=== PATIENT | female | born 1965 | race Caucasian/White ===

== ENCOUNTER → 2016-09-04 | Outpatient (CLI) | payer BC ==
[~2016-09-04] VITALS: Ht 170.2 cm; Wt 72.5 kg
[~2016-09-04] MED LIST: AAA MISCELL; AMBIEN 10 MG TA10 MG PO; AMBIEN 5 MG TABL5 M1 PO; AMBIEN PO; AMITRIPTYLINE H10 M1 PO; BACLOFEN 10 MG10 MG PO; CARISOPRODOL 3350 MG PO; CARISOPRODOL250 MG PO; COVARYX TABLET1 EACH PO; DOXEPIN 10 MG C10 MG PO; ESTRACE2 MG PO; FISH OIL 1,0001 EAC5 PO; GABAPENTIN100 MG PO; HYDROCODON-ACE1 EAC1 PO; HYDROCODON-ACE1 EACH PO; HYDROCODONE-AP1 EA11 PO; HYDROCODONE-AP1 EAC6 PO; L-LYSINE500 M1 PO; MEDROLDOSEPACK PO; NEURONTIN300 MG PO; OXYCONTIN CR 2020 MG PO; OXYCONTIN20 MG PO; OXYCONTIN40 MG PO; PROZAC 20 MG20 M1 PO; PROZAC10 MG PO; SOMA250 MG PO; VITAMINC500
--- NOTE | ~2016-09-04 | HPC ---
[facility] [address] [place] [address] PAIN MANAGEMENT CONSULTATION Name: LEONEL JENKINS Room #: REG [facility] [id number] Admission: 09/04/16 Attend Phys: Amber Taylor MD Discharge: Date of : 65 Report #: [id number] THIS REPORT FOR: //name// CC: CULLEN BOB DATE OF SERVICE: 09/04/2016 FOLLOWUP COMPLAINT: Here for medication renewal. FOLLOWUP HISTORY: The patient is a 51-year-old female who has been followed in the pain clinic because of lumbar radiculopathy. She undergoes epidural steroid injections episodically. She notes that they have been beneficial. She claims greater than 50% improvement with the injections. At this juncture, she would like to have her medications renewed. She continues to have some pain in the low back area as well as in her shoulders. Leg pain is greater on the right than left. She rates her pain as 7/10 at this juncture. She would like to have her medications renewed. PHYSICAL EXAMINATION: The patient is alert. She does work third shift. Blood pressure is 130/98, pulse 81, respiratory rate 14, room air saturations 100%. The patient appears to be taking her medications as prescribed. She is alert and somewhat concerned because [employer] is going to a downsizing. IMPRESSION: History of lumbar radicular pain. The patient finds epidural steroid injections helpful by greater than 50% after each injection. Some concerns regarding her job given that [employer] is going to cut 10% of its workforce here in the near future. RECOMMENDATIONS: A script for the patient's medications have been written. OxyContin, Ambien, hydrocodone, and Neurontin have been rewritten. The patient is aware of the possible complications of opioid medications which include tolerance as well as addiction. She feels that her medications are helpful and enable her to continue to stay gainfully employed, it is not altering her sensorium or ability to mentate. We would like to thank you for letting us participate in her care. We hope she continues to improve. <ELECTRONICALLY SIGNED> By: Amber Taylor MD 09/10/16 0824 [id number] [id number] Amber Taylor MD /nt
[2016-09-04 09:36] VITALS: BP 130/98
== END ==
LOC: PAIN 06:56
DX: M54.16 Radiculopathy, lumbar region (principal); M25.512 Pain in left shoulder; M25.511 Pain in right shoulder; I10 Essential (primary) hypertension; Z76.0 Encounter for issue of repeat prescription

== ENCOUNTER → 2016-12-27 | Outpatient (CLI) | payer BC ==
[~2016-12-27] VITALS: Ht 170.2 cm; Wt 73.8 kg
--- NOTE | ~2016-12-27 | HPC ---
[facility] [address] [address] PAIN MANAGEMENT CONSULTATION Name: LEONEL JENKINS Room #: REG [facility].#: [id number] Admission: 12/27/16 Attend Phys: Amber Taylor MD Discharge: Date of : 65 Report #: [id number] THIS REPORT FOR: //name// CC: Clement BOB DATE OF SERVICE: 12/27/2016 FOLLOWUP COMPLAINT: "Back pain and leg pain is kind of bad." FOLLOWUP HISTORY: The patient is a 51-year-old female who has been followed in the pain clinic because of lumbar radicular pain. She has undergone epidural steroid injections in the past. She finds that her current medical regimen of Neurontin, Ambien, and hydrocodone have been helpful. She is more tired these days. Her job requires that they work 10-12 hour days. She finds that this is quite taxing and exacerbates her pain. Overall, she is doing reasonably well and would like to continue with her medications. She has had no complications from their use. She is not having any problems with work performance with her current medical regimen. PHYSICAL EXAMINATION: Blood pressure is 152/102, respiratory rate is 20, room air O2 saturation is 99%, pulse 84. Height 5 feet 7 inches, weight 162 pounds, BMI is 25. The patient continues to work toward weight loss and feels that she has been effective. IMPRESSION: History of lumbar radicular pain. The patient feels that things are going reasonably well and will continue on a conservative course. She would like to have her medications renewed. RECOMMENDATIONS: We discussed treatment options with the patient. Problems with narcotic medications which could include tolerance, and addiction have been discussed. The patient feels that her medications are working well and enable her to continue with her current job and stay gainfully employed. We will continue her medications and a script for the medications have been rewritten. We would like to thank you for letting us participate in her care. We hope she continues to improve. By: [id number] Amber Taylor MD /
[2016-12-27 11:05] VITALS: BP 152/102
== END ==
LOC: PAIN 06:48
DX: M54.5 Low back pain (principal)

== ENCOUNTER → 2017-04-04 | Outpatient (CLI) | payer BC ==
[~2017-04-04] VITALS: Ht 170.2 cm; Wt 73.6 kg
[~2017-04-04] MED LIST changes: +OXYCONTIN30 MG PO
--- NOTE | ~2017-04-04 | HPC ---
[facility] [place] [address] [place] [address] PAIN MANAGEMENT CONSULTATION Name: LEONEL JENKINS Room #: REG [facility].#: [id number] Admission: 04/04/17 Attend Phys: Amber Taylor MD Discharge: Date of : 65 Report #: [id number] THIS REPORT FOR: //name// CC: Clement BOB DATE OF SERVICE: 04/04/2017 FOLLOWUP COMPLAINT: Here for renewal of medication and my back still can be painful with pain down in the mid back and legs. FOLLOWUP HISTORY: The patient is a 52-year-old female who has been followed in the pain clinic. She suffers from lumbar radicular pain and has undergone epidural steroid injections in the past. These have been helpful. At this juncture, she continues to have pain, which she rates as a 6-7. She is experiencing some low back pain with pain down into her legs bilaterally as well as involving the mid back. Notes that the pain is worse with walking, standing and with certain activities. She is still able to work at [employer]. She feels that her current medical regimen of OxyContin 40 mg b.i.d. and hydrocodone are helpful. We have discussed the new requirements for opioid medications as delegated by the CDC. We will move in that direction. We will start to decrease the patient's medications to come into compliance. We discussed the possibility of dependence, tolerance and addiction with the patient again. She would like to proceed with her medications and have them renewed. We reevaluate her medications and discussed them with her. PHYSICAL EXAMINATION: Blood pressure 117/77, pulse 76, respiratory rate 14, room air saturation 100, height 5 feet 7 inches, weight 162 pounds, BMI is 25. The patient has not fallen since we saw her last. She does have some elements and feels that she has some clinical depression issues. IMPRESSION: 1. History of lumbar radicular pain treated with epidural steroid injections in the past and an optional is open for the future. 2. Pain and discomfort, low back, treated with complex medication management using opioid therapy. RECOMMENDATIONS: We discussed treatment options. The patient's pain medications have been dispensed. We will decrease from OxyContin 40 mg b.i.d. to his OxyContin 30 mg p.o. b.i.d. in an effort to get to his new CDC levels. I talked with the patient about 20 minutes regarding her situation [place] [address] PAIN MANAGEMENT CONSULTATION Name: LEONEL JENKINS Room #: REG [facility]#: [id number] Admission: 04/04/17 Attend Phys: Amber Taylor MD Discharge: Date of : 65 Report #: [id number] the medical use of opioid medications. We would like to thank you for letting us participate in her care. We hope she continues to improve. <ELECTRONICALLY SIGNED> By: Amber Taylor MD 04/10/17 0945 [id number] Amber Taylor MD /[facility]
[2017-04-04 08:28] VITALS: BP 113/77
== END ==
LOC: PAIN 06:56
DX: M54.5 Low back pain (principal); Z79.899 Other long term (current) drug therapy

== ENCOUNTER → 2017-07-16 | Outpatient (CLI) | payer BC ==
[~2017-07-16] VITALS: Ht 170.2 cm; Wt 75.3 kg
[~2017-07-16] MED LIST changes: +OXYCONTIN20 M1 PO
--- NOTE | ~2017-07-16 | HPC ---
[facility] [address] [place] [address] PAIN MANAGEMENT CONSULTATION Name: LEONEL JENKINS Room #: REG [facility].#: [id number] Admission: 07/16/17 Attend Phys: Amber Taylor MD Discharge: Date of : 65 Report #: [id number] THIS REPORT FOR: //name// CC: Clement Evans MD DATE OF SERVICE: 07/16/2017 FOLLOWUP COMPLAINT: "Things have been going pretty well, but my 's family member ." FOLLOWUP HISTORY: The patient is a 52-year-old female who has been followed in the Pain Clinic because of chronic pain. She has suffered from lumbar radiculopathy. She has undergone epidural steroid injection and does episodically. She continues to work at [email or web address]. She finds that her medication enable her to stay gainfully employed. She denies any problems with her mentation. She is not having any problems with her bowel or bladder. She notes that sometimes her pain is more problematic with the activities that she has to engage in at work such as walking, standing, and moving about in the cars. She feels that her medications are beneficial. We have discussed the requirements for the new CDC guidelines. She is aware of the conversation in the media. She is a nurse. She does not feel like she is having any tolerance or dependent issues. Overall, things are working reasonably well and she would like to continue with her medications. She is somewhat depressed and that her 's family member . Her job did not feel that this person was close enough to her to yaz her leave from work. Overall, she is dealing with this situation as best she can. ALLERGIES: No known drug allergies. CURRENT MEDICATIONS REVIEW: Include oxycodone 30 mg p.o. b.i.d., hydrocodone 7.5 one p.o. q.i.d., gabapentin 300 mg b.i.d., Soma 350 mg b.i.d., Ambien 5 mg at bedtime, Prozac 20 mg daily. PAIN CLINIC ASSESSMENT: 1. The patient has a generalized history of osteoarthritis. She is not being treated for rheumatoid arthritis. 2. Height 5 feet 7 inches, weight 166 pounds, BMI is 26. 3. Vital signs: Blood pressure 118/87, respiratory rate 16, room air saturation 97%. 4. Pain intensity: 6/10. 5. Fall risk: The patient has not fallen in the last 3 months. 6. The patient [place] [address] PAIN MANAGEMENT CONSULTATION Name: LEONEL JENKINS [facility] [id number] Admission: 07/16/17 Attend Phys: Amber Taylor MD Discharge: Date of : 65 Report #: [id number] 7. History of hypertension: The patient is being treated for hypertension. 8. Opioid therapy greater than 6 weeks: The patient has signed an opioid contract with the pain Clinic on 07/16/2017. 9. Risk assessment tool is 04/29, which is low. 10. Functional assessment tool. 11. Recreational drug use: The patient denies recreational drug use. 12. Tobacco: The patient denies use of tobacco. 13. Alcohol: The patient denies use of alcoholic beverages. PHYSICAL EXAMINATION: GENERAL: The patient is a well-developed, white female. She appears her stated age. AFFECT: The patient's affect is appropriate. ORIENTATION: The patient is alert and oriented x 3. HEENT: Normocephalic, atraumatic. Extraocular eye muscles intact. Conjunctivae clear. Mucous membranes moist. Hearing is within normal limits. NECK: Without adenopathy or JVD. HEART: Regular rate. ABDOMEN: Nontender. BACK/MUSCULOSKELETAL: Without significant lordosis, scoliosis or kyphosis. Upper extremity muscle strength is judged to be 5/5 with normal sensation. Lower extremity muscle strength is judged to be 5/5 with normal strength. She does complain of some pain and discomfort, which radiates down into her low back and legs when the lumbar radicular pain is problematic, not as problematic today. Muscle bulk is within normal limits. IMPRESSION: 1. History of lumbar radicular pain in the L5-S1 distribution, improved with epidural steroid injection and stabilized with current medical regimen. 2. Hypertension. 3. Saddened secondary to recent loss of a close relative. RECOMMENDATIONS: We will continue with her current medical regimen. A script for her medications of hydrocodone 7.5/325 one p.o. q.i.d. has been written. A script for Ambien 5 mg at bedtime, Soma 350 mg 1 p.o. b.i.d., gabapentin 300 mg b.i.d., and OxyContin 60 mg t.i.d. has been written. The patient has signed a contract for continued opioid use. She states that she only get her medications from one source. She will call us if she has any problems with her medications. We would like to thank you for letting us participate in her care. We hope she continues to improve. <ELECTRONICALLY SIGNED> By: Amber Taylor MD 07/30/17 0851 0824 9 MD rony Yu
[2017-07-16 08:04] VITALS: BP 118/82
== END ==
LOC: PAIN 07-09 06:50
DX: M54.16 Radiculopathy, lumbar region (principal); I10 Essential (primary) hypertension

== ENCOUNTER → 2017-10-15 | Outpatient (CLI) | payer BC ==
[~2017-10-15] VITALS: Ht 170.2 cm; Wt 76.7 kg
--- NOTE | ~2017-10-15 | HPC ---
[facility] [place] [address] [place] [address] PAIN MANAGEMENT CONSULTATION Name: LEONEL JENKINS Room #: REG [facility].#: [id number] Admission: 10/15/17 Attend Phys: Amber Taylor MD Discharge: Date of : 65 Report #: [id number] THIS REPORT FOR: //name// CC: Amber Taylor Physician staff SUE BOB DATE OF SERVICE: 10/15/2017 FOLLOWUP COMPLAINT: Here for my medications renewed. Another of my 's family members . FOLLOWUP HISTORY: The patient is a 52-year-old female who has been followed in the pain clinic because of chronic pain. Suffers from lumbar radiculopathy. She has undergone epidural steroid injections in the past which have been helpful. Continues to work at [employer]. She has been having some difficulty in sleeping, particularly since the added trauma of an additional family member who has . She finds it somewhat difficult to get time off from work because of the policies at [employer] against missing work. She feels that her medications continue to be helpful. She is having some difficulty sleeping and would like to increase her Ambien from 5 mg to 10 mg. She has been on 10 mg in the past and had no problems with that dosing. She is aware of use of opioid medications and the possibility of dependence as well as chronic use causing tolerance. ALLERGIES: No known drug allergies. CURRENT MEDICATIONS: Oxycodone 30 mg 1 p.o. b.i.d., hydrocodone 7.5 mg 1 p.o. q.i.d., gabapentin 300 mg b.i.d., Soma 350 mg b.i.d., Ambien 5 mg at bedtime, Prozac 20 mg daily. PAIN CLINIC ASSESSMENT: 1. The patient has generalized osteoarthritis. She is not being treated for rheumatoid arthritis. 2. Height 5 feet 7 inches, weight 169 pounds, BMI is 26. 3. Vital signs 134/86, pulse 55, respiratory rate 14, room air saturation 98%. 4. Pain intensity 7-11/28. 5. Fall risk. The patient has not fallen in the last 3 months. 6. Blood thinner. The patient is not on a blood thinning medication. 7. History of hypertension. The patient is being treated for hypertension. 8. Opioid therapy greater than 6 weeks. The patient is on an opioid contract and gets her medication from one source. 9. Risk assessment tool, low for with use of opioids. 10. Functional assessment tool. 11. Recreational drugs. The patient denies use of recreational drugs. 12. Tobacco: The patient has never smoked cigarettes. [address] [address] PAIN MANAGEMENT CONSULTATION Name: LEONEL JENKINS [facility] [id number] Admission: 10/15/17 Attend Phys: Amber Taylor MD Discharge: Date of : 65 Report #: [id number] 13. Alcohol: The patient denies use of alcoholic beverages. PHYSICAL EXAMINATION: GENERAL: The patient is a well-developed white female, appears her stated age. She has just gotten off from work and is somewhat tired today. Affect: The patient's affect is appropriate. Orientation: The patient is alert and oriented x3. HEENT: Normocephalic, atraumatic. Extraocular eye muscles intact. Conjunctiva clear. Mucous membrane is moist. Hearing within normal limits. NECK: Without adenopathy or JVD. HEART: Regular S1, S2. ABDOMEN: Nontender. MUSCULOSKELETAL: Without lordosis, scoliosis, kyphosis. Muscle strength in the upper extremity judged to be 5/5 for the major muscle groups. Pain and/or strength in the lower extremity judged to be 5/5. The patient has some pain and discomfort, which radiates down into her low back and into her legs. Muscle bulk is within normal limits and symmetrical bilaterally. IMPRESSION: 1. History of lumbar radicular pain in the L5-S1 dermatomal distribution improved in the past with epidural steroid injections. 2. Depression secondary to another of her 's relatives dying - has another brother who is living with liver cancer. RECOMMENDATIONS: We discussed treatment options with the patient. Risks and benefits of opioid medications were again discussed. The patient is aware of the possible complications of opioid use, which could include addiction as well as tolerance. The patient feels that she is having some difficulty sleeping, given the climate that she is in, she is under stress at work. They do not want to yaz her significant time off from work to undergo family medical leave. She would like to try Ambien at 10 mg per night on those occasions when sleep is problematic. We will increase her Ambien to 45 pills. She will be able to take 1 every other night should she need. She will also be given a script for renewal of her medications of hydrocodone, Soma, gabapentin and OxyContin. We would like to thank you for letting us participate in her care. We hope she continues to improve. By: [id number] Amber Taylor MD /naty
[2017-10-15 09:50] VITALS: BP 134/86
== END ==
LOC: PAIN 06:58 → RAD 06:58 → PAIN 10:41
DX: Z12.31 Encounter for screening mammogram for malignant neoplasm of breast (principal); M54.16 Radiculopathy, lumbar region; F32.9 Major depressive disorder, single episode, unspecified; Z79.891 Long term (current) use of opiate analgesic

== ENCOUNTER → 2018-04-10 | Outpatient (CLI) | payer BC ==
[~2018-04-10] VITALS: Ht 170.2 cm; Wt 74.7 kg
[~2018-04-10] MED LIST changes: +VALIUM5 MG PO
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
[2018-04-10 08:53] VITALS: BP 144/106
== END ==
LOC: PAIN 08:40
DX: M54.16 Radiculopathy, lumbar region (principal); F32.9 Major depressive disorder, single episode, unspecified; Z79.899 Other long term (current) drug therapy

== ENCOUNTER → 2018-06-05 | Outpatient (CLI) | payer BC ==
[~2018-06-05] VITALS: Ht 170.2 cm; Wt 74.4 kg
--- NOTE | ~2018-06-05 | HPC ---
[facility] [address] [place] [address] PAIN MANAGEMENT CONSULTATION Name: LEONEL JENKINS Room #: REG [facility].#: [id number] Admission: 06/05/18 Attend Phys: Amber Taylor MD Discharge: Date of : 65 Report #: [id number] THIS REPORT FOR: //name// CC: Amber Taylor Physician staff SUE BOB DATE OF SERVICE: 06/05/2018 FOLLOWUP COMPLAINT: Here for medication renewal. HISTORY: The patient is a 53-year-old female who has been followed and seen in the pain clinic for quite a number of years. Continues to have pain and discomfort at the lumbar area. She has undergone epidural steroid injections in the past and gleaned benefits from these. She continues to work at the [employer]. States that she has a job which is somewhat strenuous. Gets in and out of cars. She has had some increased anxiety. States that there are ____ who are stealing the car from the company. She almost was run over by one of them. They appear to be teenagers under the age of 16. They steal cars and she is concerned for her safety. Because of that, she has had increased anxiety. She spoke with her psychiatrist with the desire to try an antianxiety agent. She has raised a question of use of an additional medication for anxiety with the pain clinic. Overall, she feels that she is less anxious now. They have made some changes in her activities at work. It seems like things are better and she feels less anxious. She does not feel that she needs to have another antianxiety medication at this point. ALLERGIES: No known drug allergies. CURRENT MEDICATIONS: Diazepam 5 mg 1 p.o. b.i.d. The patient has Ambien 5 mg 1-1/2 tablets daily at bedtime, oxycodone ER 20 mg b.i.d., hydrocodone 7.5 mg 1 p.o. q.i.d., gabapentin 300 mg, Soma 350 mg, Prozac 20 mg. PAIN CLINIC ASSESSMENT/PQRS: 1. The patient has some signs of osteoarthritic changes in her hands. She feels that she may have rheumatoid arthritis features as well. She is a nurse. Height 5 feet 6 inches, weight 164 pounds, BMI is 25.7. 2. Vital signs: Blood pressure 110/88, pulse 64, respiratory rate 14, room air saturation 97%. 3. Pain intensity 6/7. 4. Fall history: The patient has not fallen in the last 3 months. 5. Blood thinner. The patient is not on a blood thinning medication. 6. Hypertension. The patient is being treated for hypertension. 7. Opioids greater than 6 weeks, the patient receives her medication from one source, the pain clinic. 8. Risk assessment tool, low for opioid use. [address] [address] PAIN MANAGEMENT CONSULTATION Name: LEONEL JENKINS Room #: REG [facility].#: [id number] Admission: 06/05/18 Attend Phys: Amber Taylor MD Discharge: Date of : 65 Report #: [id number] 9. Functional assessment tool . 10. Recreational drug use. The patient denies use of recreational drugs. 11. Tobacco: The patient never smoked. 12. Alcohol: The patient denies use of alcoholic beverages. PHYSICAL EXAMINATION: GENERAL: The patient is a well-developed, well-nourished white female. Appears her stated age. She is alert and oriented x 3. Her affect is appropriate. Speech is fluent. HEENT: Normocephalic, atraumatic. Extraocular eye muscles intact. Sclerae nonicteric. Mucous membranes moist. Hearing is within normal limits. NECK: Without adenopathy or JVD. HEART: Rate regular, S1, S2. ABDOMEN: Nontender. Bowel sounds present. MUSCULOSKELETAL: Without kyphosis, lordosis, or scoliosis. Muscle strength in the upper extremities, judged to be 5/5 for the major muscle groups. The patient has some pain and discomfort in the lower portion of her back. Rates her pain as 5-/5 for the lower extremity. Has low back pain with pain that has been radiating down into her legs, this is in the L5-S1 dermatomal distribution. She will consider an epidural steroid injection in the future. IMPRESSION: 1. History of lumbar radiculopathy with pain in the L5-S1 dermatomal distribution. 2. Depression. 3. Anxiety. RECOMMENDATIONS: We discussed treatment options with the patient. She does have a number of central acting medications on board. I think that if she should get another medication, which is going to be centrally acting by her psychiatrist. We will have to decrease one of the medications that she is taking. At this juncture, she feels that overall that her anxiety level has improved. Does not feel like she needs to take another medication and is willing to consider decreasing her OxyContin down by 10 mg at the next visit. She will call us if she has any concerns. We would like to thank you for letting us participate in her care. A script for her medications of oxycodone 20 mg ER 1 p.o. b.i.d., hydrocodone 7.5 mg 1 p.o. q.i.d., Soma 350 mg 1 p.o. b.i.d., gabapentin 300 mg b.i.d., Ambien 5 mg, total of 45 tablets have been written. We would like to thank you for letting us participate in her care. We hope she continues to improve. By: [id number] Amber Taylor MD /nt
[2018-06-05 08:41] VITALS: BP 110/88
--- NOTE | 2018-06-05 08:49 | NUR ---
Pain Clinic Assessment: 1. History of Osteoarthritis: hands knee History of Rheumatoid Arthritis: none 2. Height: 5 ft. 7 in. 170.2 cm. Weight: 164.0 lb. oz. 74.390 kg. Patient's BMI: 25.7 3. Vital Signs: BP: 110/88 Pulse: 64 Resp: 14 Temp: 02 Sat: 97 ECG Mon: 4. Pain Intensity: 6-7 5. Fall Risk: Dizziness: N Needs help standing or walking: N Fallen in the last 3 months: N Fall risk comments: 6. Patient on Blood Thinner: None 7. History of Hypertension: Y 8. Opioid Therapy greater than 6 weeks: Y Opiate Contract Signed: 07/16/17 9. Risk Assessment Tool Provided: 1 LOW RISK 10. Functional Assessment Tool: 11. Recreational Drug Use: Never Drug Type: Tobacco Use: Never Smoker Tobacco Type: Amount or Packs/day: How Many Years: Alcohol Use: No Frequency: Quant:
== END ==
LOC: PAIN 06:56
DX: M54.16 Radiculopathy, lumbar region (principal); F32.9 Major depressive disorder, single episode, unspecified; I10 Essential (primary) hypertension; F41.9 Anxiety disorder, unspecified; Z79.899 Other long term (current) drug therapy

== ENCOUNTER → 2018-07-20 | Outpatient (CLI) | payer BC ==
[~2018-07-20] VITALS: Ht 170.2 cm; Wt 77.4 kg
[~2018-07-20] MED LIST changes: +NEURONTIN 300300 M1 PO
[2018-07-20 09:27] VITALS: BP 154/99
--- NOTE | 2018-07-20 10:34 | NUR ---
Pain Clinic Assessment: 1. History of Osteoarthritis: hands knee History of Rheumatoid Arthritis: none 2. Height: 5 ft. 7 in. 170.2 cm. Weight: 170.6 lb. oz. 77.384 kg. Patient's BMI: 26.7 3. Vital Signs: BP: 154/99 Pulse: 64 Resp: 14 Temp: 02 Sat: 99 ECG Mon: 4. Pain Intensity: 6 5. Fall Risk: Dizziness: N Needs help standing or walking: N Fallen in the last 3 months: N Fall risk comments: 6. Patient on Blood Thinner: None 7. History of Hypertension: Y 8. Opioid Therapy greater than 6 weeks: Y Opiate Contract Signed: 07/16/17 9. Risk Assessment Tool Provided: 1 LOW RISK 10. Functional Assessment Tool: 11. Recreational Drug Use: Never Drug Type: Tobacco Use: Never Smoker Tobacco Type: Amount or Packs/day: How Many Years: Alcohol Use: No Frequency: Quant:
--- NOTE | 2018-07-22 07:20 | HPC ---
[facility] [address] [place] [address] PAIN MANAGEMENT CONSULTATION Name: LEONEL JENKINS Room #: REG [facility].#: [id number] Admission: 07/20/18 ������������������ Attend Phys: Nicolasa Pillai Discharge: ������������������ Date of : 65 Report #: [id number] THIS REPORT FOR: //name// CC: Nicolasa Pillai Physician staff SUE BOB DATE OF SERVICE: 07/20/2018 CHIEF COMPLAINT: Chronic low back pain and neck pain. HISTORY OF PRESENT ILLNESS: This is a 53-year-old female who returns to the pain clinic today for refill of her medications for her ongoing chronic pain. She tells me that her lower back continues to ache, feels like a deep ache with tenderness and sharp shooting pain at times, but today she also complains of neck pain that radiates into both her arms and hands causing her having tingling and numbness in her fingers. She rates her pain score at 6/10, worse with activity, better with her medications and sitting. The patient is also requesting to decrease her OxyContin and wondering while she decreases that medicine if she is able to increase her hydrocodone slightly. She was wondering if that would help decrease her number per the CDC recommendations. ALLERGIES: No known drug allergies. MEDICATIONS: Gabapentin 300 mg b.i.d., Soma 350 mg b.i.d. as needed, Ambien 5 mg 1-2 tablets at bedtime, OxyContin 20 mg b.i.d., hydrocodone 7.5/325 four times a day and Prozac 10 mg daily. PQRS: 1. She has signs of arthritic changes in her hands. She denies any rheumatoid arthritis. 2. Height is 5 feet 7 inches, weight is 170, BMI is 26.7. 3. Vital signs: 154/99, pulse is 64, respirations 14, oxygen sat is 99. 4. Pain score 6/10. 5. Does not have any dizziness, has not fallen in the last 3 months and does not need help walking or standing. 6. The patient is not on any blood thinners. She does have a history of hypertension. 7. Opioid therapy is greater than 6 weeks; therefore, an opioid signed contract is on the chart. 8. Risk assessment tool is low. Functional assessment is . 9. Recreational drug use, she denies. She is not a smoker and does not drink alcohol. PHYSICAL EXAMINATION: GENERAL: This is a well-developed, well-nourished white female who appears her [address] [address] PAIN MANAGEMENT CONSULTATION Name: LEONEL JENKINS Room #: REG [facility]#: [id number] Admission: 07/20/18 ������������������ Attend Phys: Nicolasa Pillai Discharge: ������������������ Date of : 65 Report #: [id number] stated age. She is alert and orientated x 3. Her affect is appropriate. HEENT: Normocephalic, atraumatic. Extraocular eye muscles are intact. Mucous membranes are moist. NECK: Without adenopathy or JVD. Does complain of tenderness across her upper neck and shoulder region. Does have pain that radiates down into the tips of her fingers in the dermatomal distribution of C6 and C7. Muscle strength judged to be 4/5 in her upper extremities. MUSCULOSKELETAL: Without kyphosis, lordosis, or scoliosis. Muscle strength in her lower extremity judged to be 5/5 in major muscle groups and in her upper extremity judged to be 4/5 in her major muscle groups. She does have some pain across her lower back that does radiate down her leg in distribution of the dermatome chart on L5-S1. IMPRESSION: 1. History of lumbar radiculopathy with pain at the L5-S1 dermatomal distribution. 2. Neck pain with cervical radiculopathy. 3. Depression. 4. Anxiety. 5. Chronic opioid management under terms of written opioid agreement. We reviewed the fact that opiate medications are being used to provide analgesia adequate to support activities of daily living, not attempting to achieve a specific pain score on the 0-10 Visual Analog Scale. The current opiate medications are providing sufficient analgesia to allow the patient to participate in activities of daily living. The patient is not exhibiting any aberrant behavior suggestive of drug diversion. The patient is not having any adverse reactions to medications. The patient is not suffering from daytime somnolence or mental acuity changes. The patient is managing opiate-induced constipation with appropriate [id number] agents and dietary considerations. The patient was counseled on concern for caution with operating a motor vehicle while using opiate medications. A physical exam was performed and the patient's functional status was evaluated. All patients with back pain were advised against the bed rest greater than 4 days and were advised to return to normal activities. Pain score assessment was noted and the treatment plan was reviewed with the patient. All current medications, both prescribed and OTC were reviewed and reconciled on the electronic medical record. Tobacco screening was accomplished and smoking cessation was advised when indicated. BMI was noted and diet/exercise modification was recommended for all patients following outside normal parameters. I reviewed with the patient today their responsibilities to safeguard prescription medications, reviewed their responsibility to utilize medications only as prescribed by the physician. They are to seek and receive pain [address] [address] PAIN MANAGEMENT CONSULTATION Name: LEONEL JENKINS Room #: REG [facility]#: [id number] Admission: 07/20/18 ������������������ Attend Phys: Nicolasa Pillai Discharge: ������������������ Date of : 65 Report #: [id number] medications only from 1 physician group ( [facility]). They are to use 1 pharmacy and keep the clinic informed if they change pharmacies. Their responsibilities include making followup visits in a timely fashion and to avoid abrupt discontinuation of medication usage. Their responsibilities further include bringing their medications (bottles from the pharmacy with residual pills) to the visit for possible confirmation of pill counts and the patient understands it is their responsibility to submit to random drug screens to ensure both that the medications prescribed are present, and that no other controlled substances are present. All prescriptions provided today were generated electronically. PLAN: 1. We discussed treatment options with the patient today. First of, the patient does complain of increasing neck pain that has been radiating down into her fingers. The patient has had epidurals in the past in her lumbar spine and would consider an epidural in her neck. We have no new studies. I suggested make an appointment with Dr. Elvis Taylor for a cervical epidural. The patient is agreeable to this. I explained to her that if the epidural is not helpful in relieving some of her pain that we could consider an MRI. Appointment made for this injection. 2. The patient has been slowly decreasing her opioid medications. She is well aware of the CDC guidelines and was requesting a decrease in her OxyContin today and then a slight increase in her hydrocodone. She was wondering what her number might be. We calculated that she was currently on 90 morphine mEq if we decreased her to 1 hydrocodone a day, but increased her hydrocodone to 4 tablets of 10/325 that would give her a CDC guideline number of 70 morphine mEq today. The patient would like to try this. Scripts given for 1 month of these medications. The patient will return at that time to reevaluate to see how she is doing and plans to continue at that dose for several months and then decrease her off her OxyContin. 3. Script is also given for gabapentin 300 mg 1 tablet twice a day, #60 with one additional refill and Ambien 5 mg 1-2 tablets at bedtime, #45 with one additional refill and Soma 350 mg b.i.d. #60 with one additional refill. The patient finds all these medications are very helpful in controlling her pain. 4. The patient seen in collaboration with Dr. Elvis Taylor. ��������������������������������������������� <ELECTRONICALLY SIGNED> ���������������������������������������� By: Nicolasa Pillai ��������������������������������������������� 07/22/18 0720 1124 [id number] Nicolasa Pillai /naty
== END ==
LOC: PAIN 07:00
DX: M54.16 Radiculopathy, lumbar region (principal); M54.12 Radiculopathy, cervical region; F32.9 Major depressive disorder, single episode, unspecified; F41.9 Anxiety disorder, unspecified; Z79.899 Other long term (current) drug therapy

== ENCOUNTER → 2018-07-24 | Outpatient (CLI) | payer BC ==
[~2018-07-24] VITALS: Ht 170.2 cm; Wt 78.7 kg
--- NOTE | ~2018-07-24 | HPC ---
[facility] [place] [address] [place] [address] PAIN MANAGEMENT CONSULTATION Name: LEONEL JENKINS Room #: REG [facility]ON [facility]#: [id number] Admission: 07/24/18 ������������������ Attend Phys: Amber Taylor MD Discharge: ������������������ Date of : 65 Report #: [id number] THIS REPORT FOR: //name// CC: Amber Taylor Physician staff SUE BOB DATE OF SERVICE: 07/24/2018 CHIEF COMPLAINT: Pain in the neck with pain radiating down into the left arm, would like to have a cervical injection. HISTORY: The patient is a 53-year-old female. 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 She has had pain and discomfort in the lower back with bilateral pain in her hips, legs. She now is having pain, it is in her neck, which radiates down into both arms and her hands. She feels that a cervical epidural steroid injection could be helpful. She has had problems with chronic pain since 1986. Has some complaint of pain in the low back area, neck, arm, pain is most problematic today. She has been experiencing some numbness, tingling and weakness in the upper extremities. Rates her pain as a 6/10. Has increased pain and exacerbated when she turns her head to the left. Reaching motions are problematic as well. Sitting and resting are less problematic. She has returned today to the pain clinic with a desire to undergo a cervical epidural steroid injection to help control her pain. ALLERGIES: No known drug allergies. CURRENT MEDICATIONS: Diazepam 5 mg 1 p.o. b.i.d., Ambien 5 mg 1 to 1-1/2 tablets daily at bedtime, oxycodone ER 20 mg b.i.d., hydrocodone 7.5 mg 1 p.o. q.i.d., gabapentin 300 mg, Soma 350 mg, Prozac 20 mg. PAIN CLINIC ASSESSMENT AND PQRS: 1. The patient has some arthritic changes in her hands. The patient has some complaints of pain in her low back area as well. She is not being treated for rheumatoid arthritis. 2. Height 5 feet 7 inches, weight 173 pounds, BMI is 27.2. 3. Vital signs: Blood pressure 146/94. Pulse 58, respiratory rate 16, room air saturation 98%. 4. Pain intensity 09/28. 5. Fall risk. The patient has not fallen. 6. Blood thinner. The patient is not on a blood thinning medication. 7. Hypertension. The patient has been treated for hypertension. 8. Opioids greater than 6 weeks. The patient has received her medication through the pain clinic. 9. Risk assessment tool, low risk for opioid use. 10. Functional assessment tool . [address] [address] PAIN MANAGEMENT CONSULTATION Name: LEONEL JENKINS Room #: REG CLI [facility]#: [id number] Admission: 07/24/18 ������������������ Attend Phys: Amber Taylor MD Discharge: ������������������ Date of : 65 Report #: [id number] 11. Recreational drug use. The patient denies use of recreational drugs. 12. Tobacco: The patient has never smoked. 13. Alcohol: The patient denies use of alcoholic beverages. PHYSICAL EXAMINATION: GENERAL: The patient is a well-developed, well-nourished white female. Appears her stated age. She is alert and oriented x 3. Affect is appropriate. Speech is fluent. HEENT: Normocephalic, atraumatic. Extraocular eye muscles intact. Sclerae nonicteric. Mucous membranes are moist. NECK: Without adenopathy or JVD. The patient has some increased pain and discomfort in the neck area. Notes and complains of pain within both arms with pain that is radiating down from her neck into her arms, left as well as the right. Notes some numbness and tingling sensation in the arms and fingers. HEART: Regular rate. S1, S2. ABDOMEN: Nontender. Bowel sounds present. MUSCULOSKELETAL: Without significant scoliosis, kyphosis or lordosis. Upper extremity muscle strength is judged to be 4+/5 for the major muscle groups in the upper extremity. The patient has some pain and discomfort in the lower extremity. Rates pain as 5-/5 for the lower extremities. Has had pain in the past in the L5-S1 dermatomal distribution. IMPRESSION: 1. History of lumbar radiculopathy with pain in the L5-S1 dermatomal distribution. 2. Complaint now with cervical radicular pain in the cervical area with numbness and tingling down in the left as well as the right arm. 3. Depression. 4. Anxiety. RECOMMENDATIONS: We discussed treatment options with the patient. Risks and benefits of a cervical epidural steroid injection were discussed. They include but are not limited to infection, worsening of pain, no improvement in pain, nerve trauma, bleeding, infection. The patient elects to proceed. PROCEDURE NOTE: The patient was taken to the procedure area. She was assisted in getting on the examination table. A pillow was placed under her shoulders to bolster and improved positioning. Her neck was sterilely prepped with a Betadine solution. It was allowed to dry. A 0.25% bupivacaine was infiltrated at the C7-T1 interspace. This was using a left lateral approach. Her fluoroscopy was then used to direct a 17-gauge Tuohy in the left lateral approach at the C7-T1 interspace. Aspiration was negative. A total of 120 mg of triamcinolone was injected. The patient tolerated the procedure well. There were approximately 20 seconds' fluoroscopy time. Pain score was 5/6 when the patient was discharged. She will follow up in the future as needed. We would [facility] [place] [place] [address] PAIN MANAGEMENT CONSULTATION Name: LEONEL JENKINS Room #: [id number] Admission: 07/24/18 ������������������ Attend Phys: Amber Taylor MD Discharge: ������������������ Date of : 65 Report #: [id number] like to thank you for letting us participate in her care. We hope she continues to improve. ��������������������������������������������� ���������������������������������������� By: ��������������������������������������������� [id number] [id number] Amber Taylor MD /SOTERO
[2018-07-24 08:37] VITALS: BP 146/94
--- NOTE | 2018-07-24 08:43 | NUR ---
Pain Clinic Assessment: 1. History of Osteoarthritis: hands knee History of Rheumatoid Arthritis: none 2. Height: 5 ft. 7 in. 170.2 cm. Weight: 173.4 lb. oz. 78.654 kg. Patient's BMI: 27.2 3. Vital Signs: BP: 146/94 Pulse: 58 Resp: 16 Temp: 02 Sat: 98 ECG Mon: 4. Pain Intensity: 6 5. Fall Risk: Dizziness: N Needs help standing or walking: N Fallen in the last 3 months: N Fall risk comments: 6. Patient on Blood Thinner: None 7. History of Hypertension: Y 8. Opioid Therapy greater than 6 weeks: Y Opiate Contract Signed: 07/16/17 9. Risk Assessment Tool Provided: 1 LOW RISK 10. Functional Assessment Tool: 11. Recreational Drug Use: Never Drug Type: Tobacco Use: Never Smoker Tobacco Type: Amount or Packs/day: How Many Years: Alcohol Use: No Frequency: Quant:
== END | disposition home or self-care (01) ==
LOC: PAIN 06:52
DX: M54.12 Radiculopathy, cervical region (principal); M54.16 Radiculopathy, lumbar region; G89.29 Other chronic pain; I10 Essential (primary) hypertension; F32.9 Major depressive disorder, single episode, unspecified; F41.9 Anxiety disorder, unspecified; Z79.891 Long term (current) use of opiate analgesic; Z79.899 Other long term (current) drug therapy; Z98.890 Other specified postprocedural states

== ENCOUNTER → 2018-09-18 | Outpatient (CLI) | payer BC ==
[~2018-09-18] VITALS: Ht 170.2 cm; Wt 75.4 kg
[~2018-09-18] MED LIST changes: +HYDROCODON-ACE1 EAC5 PO
[2018-09-18 11:13] VITALS: BP 148/87
--- NOTE | 2018-09-18 11:37 | NUR ---
Pain Clinic Assessment: 1. History of Osteoarthritis: hands knee History of Rheumatoid Arthritis: none 2. Height: 5 ft. 7 in. 170.2 cm. Weight: 166.2 lb. oz. 75.388 kg. Patient's BMI: 26.0 3. Vital Signs: BP: 148/87 Pulse: 70 Resp: 14 Temp: 02 Sat: 100 ECG Mon: 4. Pain Intensity: 7 5. Fall Risk: Dizziness: N Needs help standing or walking: N Fallen in the last 3 months: N Fall risk comments: 6. Patient on Blood Thinner: None 7. History of Hypertension: Y 8. Opioid Therapy greater than 6 weeks: Y Opiate Contract Signed: 07/16/17 9. Risk Assessment Tool Provided: 1 LOW RISK 10. Functional Assessment Tool: 11. Recreational Drug Use: Never Drug Type: Tobacco Use: Never Smoker Tobacco Type: Amount or Packs/day: How Many Years: Alcohol Use: No Frequency: Quant:
--- NOTE | 2018-09-21 08:34 | HPC ---
[facility] [address] [address] PAIN MANAGEMENT CONSULTATION Name: LEONEL JENKINS Room #: REG [facility].#: [id number] Admission: 09/18/18 ������������������ Attend Phys: Nicolasa Pillai Discharge: ������������������ Date of : 65 Report #: [id number] THIS REPORT FOR: //name// CC: Nicolasa Pillai Physician staff SUE BOB DATE OF SERVICE: 09/18/2018 CHIEF COMPLAINT: Neck pain radiating down into her left arm. HISTORY OF PRESENT ILLNESS: This is a very pleasant 53-year-old female who returns to the pain clinic today for refill of her medications. She tells me that in July when she saw Dr. Taylor she had a cervical epidural steroid injection. She is 90% better from that, still having some significant pain relief from that. She only has residual numbness and tingling in her bilateral hands. Most of her pain today is located in her lumbar back as well as her legs. The pain is worse in the right leg than the left. Today, she rates her pain score a 7/10, which is a sharp, shooting, achy, tenderness, pain that is worse with activity, better with resting and with the use of her medications. She tells me she is getting ready to go on vacation to [place]. She needs a vacation fill for her medications since she will be gone for greater than 2 weeks. She understands that she needs to safeguard her medications when she is traveling. ALLERGIES: No known drug allergies. CURRENT MEDICATIONS: Ambien 5 mg at bedtime, OxyContin 20 mg b.i.d., hydrocodone 7.5/325, gabapentin 300 mg b.i.d., Soma 350 b.i.d. and Prozac 20 mg daily. PQRS: 1. The patient has some arthritic changes in her hands and her lower back. She is not being treated for rheumatoid arthritis. 2. Height is 5 feet 7 inches, weight is 166 and BMI is 26. 3. VITAL SIGNS: Blood pressure 148/87, pulse is 70, respirations 14 and oxygen sat is 100. 4. Pain score 7/10. 5. Fall risk. Denies dizziness. She does not need help with walking or standing. She has not fallen in the last 3 months. 6. The patient is not on any blood thinners, does take medicine for hypertension. 7. Opioid therapy is greater than 6 weeks; therefore, an opioid signed contract is on the chart. Her risk assessment tool is low. Functional assessment is . [address] [address] PAIN MANAGEMENT CONSULTATION Name: LEONEL JENKINS Room #: REG [facility].#: [id number] Admission: 09/18/18 ������������������ Attend Phys: Nicolasa Pillai Discharge: ������������������ Date of : 65 Report #: [id number] 8. Recreational drug use, she denies. She is not a smoker and does not drink alcohol. We did check the prescription monitoring system. The patient is due in 2 weeks for her medications but since she is going on vacation fill, we will release her medications early. We will need to check a urine specimen randomly in one of her next visits. She does safeguard her medications when she is working and keeps them out of Children's reach at home. PHYSICAL EXAMINATION GENERAL: This is a pleasant 53-year-old female who appears her stated age. Placing her pain score today at 7/10. She is alert and orientated and her affect is appropriate. HEENT: Normocephalic and atraumatic. Extraocular eye muscles are intact. Mucous membranes are moist. NECK: Without adenopathy or JVD. She has some tenderness in her neck and numbness and tingling in her fingers. MUSCULOSKELETAL: Without significant scoliosis, kyphosis or lordosis. Upper extremity strength judged to be 4/5 in major muscle groups in her upper extremities. She has pain across her lumbar spine that radiates into her bilateral legs, greater in the right than the left. Her lower extremity strength judged to be 5/5 in her lower extremities. Her pain does follow the L5-S1 distribution in from her lumbar spine. IMPRESSION: 1. History of lumbar radiculopathy following the L5-S1 dermatomal distribution. 2. Cervical radicular pain with radiation into the right arm. 3. Depression. 4. Anxiety. 5. Complex medical management under terms a written opioid agreement. We reviewed the fact that opiate medications are being used to provide analgesia adequate to support activities of daily living, not attempting to achieve a specific pain score on the 0-10 Visual Analog Scale. The current opiate medications are providing sufficient analgesia to allow the patient to participate in activities of daily living. The patient is not exhibiting any aberrant behavior suggestive of drug diversion. The patient is not having any adverse reactions to medications. The patient is not suffering from daytime somnolence or mental acuity changes. The patient is managing opiate-induced constipation with appropriate [id number] agents and dietary considerations. The patient was counseled on concern for caution with operating a motor vehicle while using opiate medications. A physical exam was performed and the patient's functional status was evaluated. All patients with back pain were advised against the bed rest greater than 4 days and were advised to return to normal activities. Pain score assessment was [address] [address] PAIN MANAGEMENT CONSULTATION Name: LEONEL JENKINS Room #: REG [facility]#: [id number] Admission: 09/18/18 ������������������ Attend Phys: Nicolasa Pillai Discharge: ������������������ Date of : 65 Report #: [id number] noted and the treatment plan was reviewed with the patient. All current medications, both prescribed and OTC were reviewed and reconciled on the electronic medical record. Tobacco screening was accomplished and smoking cessation was advised when indicated. BMI was noted and diet/exercise modification was recommended for all patients following outside normal parameters. I reviewed with the patient today their responsibilities to safeguard prescription medications, reviewed their responsibility to utilize medications only as prescribed by the physician. They are to seek and receive pain medications only from 1 physician group ( [facility]). They are to use 1 pharmacy and keep the clinic informed if they change pharmacies. Their responsibilities include making followup visits in a timely fashion and to avoid abrupt discontinuation of medication usage. Their responsibilities further include bringing their medications (bottles from the pharmacy with residual pills) to the visit for possible confirmation of pill counts and the patient understands it is their responsibility to submit to random drug screens to ensure both that the medications prescribed are present, and that no other controlled substances are present. All prescriptions provided today were generated electronically. PLAN: 1. We discuss treatment options with the patient today. The patient continues to try to decrease her opioid medications. She would like to decrease her OxyContin. We had spent a great length figuring out morphine milliequivalents. Currently, the patient is at 90 with her OxyContin and hydrocodone. The patient would like to be able to decrease her OxyContin to once a day and increase her hydrocodone slightly. Based on our math, this would put her at 70 morphine milliequivalents. We would keep her at this current rate of medications for several months and then try to decrease her OxyContin to 10 mg a day and then remain at that for several months and then off her OxyContin altogether. The patient is agreeable with this plan of care. 2. Script was given today for OxyContin 20 mg, #30, for release today and 4-week as a vacation fill and hydrocodone 10 q.i.d., #120 to release today for vacation fill and again in 4 weeks. The patient understands that she should have medicines for actually in 2 months and 2 weeks, so her appointment will be made after that time. 3. Scripts also given for refills of Soma 350 mg tablets, #60 with one additional refill, Ambien 5 mg, #45 with one additional refill and Neurontin 300 mg #60 with one additional refill. 4. The patient reminded to keep her medications on her person when she is traveling and keep the medication safeguarded with [place] [address] PAIN MANAGEMENT CONSULTATION Name: LEONEL JENKINS Room #: REG [facility]#: [id number] Admission: 09/18/18 ������������������ Attend Phys: Nicolasa Pillai Discharge: ������������������ Date of : 65 Report #: [id number] as well. She verbalizes understanding. 5. Dr. Skip Taylor did see the patient and collaborated care today. ��������������������������������������������� <ELECTRONICALLY SIGNED> ���������������������������������������� By: Nicolasa Pilali ��������������������������������������������� 09/21/18 0834 [id number] [id number] Nicolasa Pillai /nt
== END ==
LOC: PAIN 06:51
DX: M54.12 Radiculopathy, cervical region (principal); M54.16 Radiculopathy, lumbar region; M54.2 Cervicalgia; I10 Essential (primary) hypertension; F32.9 Major depressive disorder, single episode, unspecified; F41.9 Anxiety disorder, unspecified; Z79.891 Long term (current) use of opiate analgesic; Z79.899 Other long term (current) drug therapy

== ENCOUNTER → 2018-12-11 | Outpatient (CLI) | payer BC ==
[~2018-12-11] VITALS: Ht 170.2 cm; Wt 78.3 kg
--- NOTE | ~2018-12-11 | HPC ---
[facility] [address] [place] [address] PAIN MANAGEMENT CONSULTATION Name: LEONEL JENKINS Room #: REG T[facility]ON [facility]#: [id number] Admission: 12/11/18 Attend Phys: Amber Taylor MD Discharge: Date of : 65 Report #: [id number] THIS REPORT FOR: //name// CC: Amber Taylor Physician staff SUE BOB DATE OF SERVICE: 12/11/2018 CHIEF COMPLAINT: Here for medication renewal. HISTORY: The patient is a 53-year-old female who has been followed in the Pain Clinic because of chronic pain. She has had some problems with cervical radicular pain as well as low back pain. She returns to the clinic for renewal of her medications. She recently fell at work. She states that she hurt her right knee as well as her right shoulder. This was about 4 weeks ago when this occurred. Pain is somewhat lingering at this point. She has had some increased stress regarding her who has had some cancers. Had a basal cell removed as well as some squamous cell carcinoma on his right arm. She has returned today for renewal of her medications. ALLERGIES: No known drug allergies. CURRENT MEDICATIONS: Ambien 5 mg at bedtime, OxyContin 20 mg b.i.d., hydrocodone 7.5 mg, gabapentin 300 mg b.i.d., Soma 350 mg, and Prozac 20 mg daily. PAIN CLINIC ASSESSMENT AND PQRS: 1. The patient has some arthritic changes in her hands and her low back. She is not being treated for rheumatoid arthritis. 2. Height 5 feet 7 inches, weight 172 pounds, BMI is 27. 3. Vital signs: Blood pressure 172/78, pulse is 59, respiratory rate 16, room air saturation is 100. 4. Pain intensity, 11/28. 5. Fall history: The patient did fall. Continues to have some pain in her right shoulder and right knee. 6. Blood thinner. The patient is not on a blood thinning medication. 7. Hypertension. The patient is not being treated for hypertension. 8. Opioids greater than 6 weeks. 9. Risk assessment tool, moderate for use of opioids. 10. Functional assessment tool, . 11. Recreational drug use. The patient denies. 12. Tobacco: The patient has never smoked. 13. Alcohol: The patient occasionally drinks alcoholic beverages. PHYSICAL EXAMINATION: [facility] [address] [place] [address] PAIN MANAGEMENT CONSULTATION Name: LEONEL JENKINS Room #: REG [facility]a [facility]#: [id number] Admission: 12/11/18 Attend Phys: Amber Taylor MD Discharge: Date of : 65 Report #: [id number] GENERAL: The patient is a well-developed, well-nourished white female. Appears her stated age. She is alert and oriented x 3. Her affect is appropriate. Speech is fluent. HEENT: Normocephalic, atraumatic. Extraocular eye muscles intact. Sclerae nonicteric. Mucous membranes are moist. NECK: Without adenopathy or JVD. The patient does have some pain and discomfort in her neck. Complains of pain down into both arms with some into her right shoulder, which is more problematic since her fall. HEART: Regular rate. S1, S2. ABDOMEN: Nontender. Bowel sounds present. MUSCULOSKELETAL: Without significant scoliosis, kyphosis or lordosis. Upper extremity muscle strength 4+/5 for the major muscle groups in the upper extremity. The patient has some pain and discomfort in the lower portion of her back. Muscle strength in the lower extremity, judged to be 5-/5. The pain generally is in the L5 dermatomal distribution. IMPRESSION: 1. History of cervical pain. 2. History of lumbar radicular pain. 3. Stress regarding her 's health history, recently underwent surgery to remove a basal cell cancer as well as squamous cell carcinoma. 4. Depression. 5. Anxiety. RECOMMENDATIONS: We discussed treatment options with the patient. At this juncture, we will continue with her current medications. She feels her medications are helpful. Does not have any problems with them. She is aware that opioid medications can be helpful for pain control, but can lose their effectiveness over time secondary to development of tolerance. She has taken her medication as prescribed. She is able to continue to work without mental problems without mental fogging. She has returned today for renewal of her medications. A script for her medications has been renewed. Prescriptions for gabapentin 300 mg 1 p.o. b.i.d., Soma 300 mg 1 p.o. b.i.d., hydrocodone 10/325 one p.o. q.i.d., oxycodone 20 mg OxyContin daily have been written. She also will continue with Meaghan to help with sleep p.r.n. We would like to thank you for letting us participate in her care. We hope she continues to improve. By: 0845 [id number] Amber Taylor MD /naty
[2018-12-11 08:19] VITALS: BP 172/78
--- NOTE | 2018-12-11 08:32 | NUR ---
Pain Clinic Assessment: 1. History of Osteoarthritis: NONE History of Rheumatoid Arthritis: NONE 2. Height: 5 ft. 7 in. 170.2 cm. Weight: 172.6 lb. oz. 78.291 kg. Patient's BMI: 27.0 3. Vital Signs: BP: 172/78 Pulse: 59 Resp: 16 Temp: 02 Sat: 100 ECG Mon: 4. Pain Intensity: 8 5. Fall Risk: Dizziness: N Needs help standing or walking: N Fallen in the last 3 months: Y Fall risk comments: 6. Patient on Blood Thinner: None 7. History of Hypertension: N 8. Opioid Therapy greater than 6 weeks: Y Opiate Contract Signed: 07/16/17 9. Risk Assessment Tool Provided: MOD 10. Functional Assessment Tool: 11. Recreational Drug Use: Never Drug Type: Tobacco Use: Never Smoker Tobacco Type: Amount or Packs/day: How Many Years: Alcohol Use: No Frequency: Quant:
== END ==
LOC: PAIN 06:44
DX: M54.2 Cervicalgia (principal); M54.5 Low back pain; F32.9 Major depressive disorder, single episode, unspecified; F41.9 Anxiety disorder, unspecified; Z79.899 Other long term (current) drug therapy

== ENCOUNTER → 2019-01-29 | Outpatient (CLI) | payer BC ==
[~2019-01-29] VITALS: Ht 175.3 cm; Wt 76.7 kg
[~2019-01-29] MED LIST changes: +Soma 350MG PO
[2019-01-29 13:35] VITALS: BP 167/93
--- NOTE | 2019-01-29 13:43 | NUR ---
Pain Clinic Assessment: 1. History of Osteoarthritis: NONE History of Rheumatoid Arthritis: NONE 2. Height: 5 ft. 9 in. 175.3 cm. Weight: 169.0 lb. oz. 76.658 kg. Patient's BMI: 24.9 3. Vital Signs: BP: 167/93 Pulse: 66 Resp: 18 Temp: 02 Sat: 98 ECG Mon: 4. Pain Intensity: 6 5. Fall Risk: Dizziness: N Needs help standing or walking: N Fallen in the last 3 months: N Fall risk comments: 6. Patient on Blood Thinner: None 7. History of Hypertension: N 8. Opioid Therapy greater than 6 weeks: Y Opiate Contract Signed: 07/16/17 9. Risk Assessment Tool Provided: MOD 10. Functional Assessment Tool: 11. Recreational Drug Use: Never Drug Type: Tobacco Use: Never Smoker Tobacco Type: Amount or Packs/day: How Many Years: Alcohol Use: No Frequency: Quant:
--- NOTE | 2019-02-10 09:44 | HPC ---
[facility] [place] [address] PAIN MANAGEMENT CONSULTATION Name: LEONEL JENKINS Room #: REG [facility]Kelli#: [id number] Admission: 01/29/19 Attend Phys: Amber Taylor MD Discharge: Date of : 65 Report #: [id number] THIS REPORT FOR: //name// CC: Amber Taylor Physician staff SUE BOB DATE OF SERVICE: 01/29/2019 CHIEF COMPLAINT: Here for medication renewal. HISTORY: The patient is a 53-year-old female who has been followed in the pain clinic because of chronic pain. She has noticed an increased amount of pain and discomfort involving her right shoulder. Has notes some decreased range of motion because of the pain. She climbs into trucks at work. Feels that maybe the use of her right hand to pull herself up into the truck might be exacerbating her shoulder. She has not fallen since we saw her last. She also has some pain and discomfort involving her right knee. She does have stress associated with her 's health. He has been found to have cancer. He has been found to have squamous cell carcinoma on his right arm. Her company is in the good negotiation for the contract. She works at [employer] This negotiation has added a level of increased stress to her life. Overall, things are going reasonably well and she would like to continue with her medications. They are not causing any problems. They are beneficial and enable her to engage in activities, she would not be able to without their use. ALLERGIES: No known drug allergies. CURRENT MEDICATIONS: Ambien 5 mg at bedtime, OxyContin 20 mg b.i.d., hydrocodone 7.5 mg, gabapentin 300 mg b.i.d., Soma 350 mg b.i.d., and Prozac 20 mg daily. PAIN CLINIC ASSESSMENT AND PQRS: 1. The patient has some osteoarthritic changes in her hands and her low back. She is not being treated for rheumatoid arthritis. 2. Height 5 feet 9 inches, weight 169 pounds, BMI is 24.9. 3. Vital signs: Blood pressure 167/93, pulse 66, respiratory rate 18, room air saturation 98%. 4. Pain intensity 09/28. 5. Fall history: The patient has not fallen in the last 3 months. 6. Blood thinner. The patient is not on a blood thinning medication. 7. Hypertension. The patient is not being treated for hypertension. 8. Opioids greater than 6 weeks. The patient received medication from one source, the pain clinic. 9. Risk assessment tool, moderate for opioid use. 10. Functional assessment tool . [address] [address] PAIN MANAGEMENT CONSULTATION Name: LEONEL JENKINS Room #: REG CL Kate#: [id number] Admission: 01/29/19 Attend Phys: Amber Taylor MD Discharge: Date of : 65 Report #: [id number] 11. Recreational drug use. The patient denies. 12. Tobacco: The patient has never smoked. 13. Alcohol. The patient denies frequent use of opioid medications. PHYSICAL EXAMINATION: The patient is a well-developed, well-nourished white female. Appears her stated age. She is alert and oriented x 3. Her affect is appropriate. Speech is fluent. HEENT: Normocephalic, atraumatic. Extraocular eye muscles intact. Sclerae nonicteric. Mucous membranes are moist. NECK: Without adenopathy or JVD. The patient has some pain and discomfort in her right shoulder. Pain is in the area of the right biceps tendon. Palpation in the area of the right bicep tendon does reproduce a component of her pain and discomfort. HEART: Regular rate. S1, S2. ABDOMEN: Nontender. Bowel sounds present. MUSCULOSKELETAL: Without significant scoliosis, kyphosis, or lordosis. Upper extremity muscle strength on the right is judged to be 4+/5. Left is 5-/5. Muscle strength in the lower extremities judged to be 5-/5. Pain is along the L5 dermatomal distribution. IMPRESSION: 1. History of cervical pain. 2. History of lumbar radicular pain. 3. Right shoulder pain and soreness over the area of the biceps tendon. 4. Stress regarding her 's health. ____ has undergone surgery to remove basal cell carcinoma as well as squamous cell carcinoma. 5. Depression. 6. Anxiety. RECOMMENDATIONS: We discussed treatment options with the patient. Risks and benefits of her medications were discussed. She continues to find these medications are efficacious. We have discussed the problems with opioid medications. They can become less effective as time goes on. She is aware of this problem. She is not having significant problems with tolerance at this point. We will continue with her medications. Hopefully, she will continue to improve her pain control as time goes on. She will continue to stretch and exercise her right shoulder. We explained that loss of motion in the shoulder joints can occur with decreased function and use of the arm. A script for her medications have been renewed. She will continue with gabapentin 300 mg 1 p.o. b.i.d. The patient will also continue with Soma 350 mg b.i.d. The patient will take Ambien 5 mg at bedtime. This will be used to help with sleep. She will also continue with hydrocodone 10/325 one p.o. q.i.d. She will call us if she has any concerns. We would like to thank you for letting us participate in her care. We will continue helping to control her pain using the complex medical management with [facility] [address] [place] [address] PAIN MANAGEMENT CONSULTATION Name: LEONEL JENKINS Room #: REG [facility].#: [id number] Admission: 01/29/19 Attend Phys: Amber Taylor MD Discharge: Date of : 65 Report #: [id number] opioids. The patient states she is able to think clearly. She does not have any problems performing her duties at work because of her medications or any problems with sedation. <ELECTRONICALLY SIGNED> By: Amber Taylor MD 02/10/19 0944 [id number] Amber Taylor MD /nt
== END ==
LOC: PAIN 06:40
DX: Z76.0 Encounter for issue of repeat prescription (principal); G89.29 Other chronic pain; I10 Essential (primary) hypertension; M54.16 Radiculopathy, lumbar region; F32.9 Major depressive disorder, single episode, unspecified; F41.9 Anxiety disorder, unspecified; Z79.891 Long term (current) use of opiate analgesic; Z79.899 Other long term (current) drug therapy

== ENCOUNTER → 2019-03-26 | Outpatient (CLI) | payer BC ==
[~2019-03-26] VITALS: Ht 170.2 cm; Wt 75.3 kg
[2019-03-26 13:54] VITALS: BP 133/79
--- NOTE | 2019-03-26 13:55 | NUR ---
Pain Clinic Assessment: 1. History of Osteoarthritis: NONE History of Rheumatoid Arthritis: NONE 2. Height: 5 ft. 7 in. 170.2 cm. Weight: 166.0 lb. oz. 75.297 kg. Patient's BMI: 26.0 3. Vital Signs: BP: 133/79 Pulse: 70 Resp: 18 Temp: 02 Sat: 99 ECG Mon: 4. Pain Intensity: 6 5. Fall Risk: Dizziness: N Needs help standing or walking: N Fallen in the last 3 months: Y Fall risk comments: 6. Patient on Blood Thinner: None 7. History of Hypertension: N 8. Opioid Therapy greater than 6 weeks: Y Opiate Contract Signed: 07/16/17 9. Risk Assessment Tool Provided: MOD 10. Functional Assessment Tool: 11. Recreational Drug Use: Never Drug Type: Tobacco Use: Never Smoker Tobacco Type: Amount or Packs/day: How Many Years: Alcohol Use: No Frequency: Quant:
--- NOTE | 2019-04-20 14:24 | HPC ---
[facility] [address] [place] [address] PAIN MANAGEMENT CONSULTATION Name: LEONEL JENKINS Room #: REG [facility].#: [id number] Admission: 03/26/19 Attend Phys: Amber Taylor MD Discharge: Date of : 65 Report #: [id number] THIS REPORT FOR: //name// CC: Amber Taylor Physician staff SUE BOB DATE OF SERVICE: 03/26/2019 CHIEF COMPLAINT: "Things are going relatively well, having some pain in my shoulders on both sides." HISTORY: The patient is a 54-year-old female who has been followed in the pain clinic. She continues to have pain and discomfort. She has noticed some improvement in her pain. She has some weakness in her legs. She feels sometimes as though they will give out. She has continued to have bilateral shoulder pain. It has improved since she had the last cervical epidural steroid injection. She rates her pain as a 6/7. She continues to work at [employer]. She does have somewhat of a stressful and demanding the physical job. 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 This activity has exacerbated her shoulder. She still has some stress associated with her family life. Her has been found to have cancer. It was squamous cell involving his right arm. ALLERGIES: No known drug allergies. CURRENT MEDICATIONS: Ambien 5 mg at bedtime, OxyContin 20 mg b.i.d., hydrocodone 7.5 mg, gabapentin 300 mg b.i.d., Soma 350 mg b.i.d., Prozac 20 mg daily. PAIN CLINIC ASSESSMENT AND PQRS: 1. The patient does have some osteoarthritic changes involving her hands as well as her low back. She is not being treated for rheumatoid arthritis. 2. Height 5 feet 7 inches, weight 166 pounds, BMI is 26.0. 3. Vital signs: Blood pressure 133/79, pulse 70, respiratory rate 18, room air saturation is 99%. 4. Pain intensity 09/28. 5. Fall history: The patient has not fallen since we saw her last. 6. Blood thinner. The patient is not on a blood thinning medication. 7. Hypertension. The patient is not being treated for hypertension. 8. Opioids greater than 6 weeks. The patient receives her medication from one source, the pain clinic. 9. Risk assessment tool, low for opioid use. 10. Functional assessment tool . 11. Recreational drug use: The patient denies. 12. Tobacco: The patient has never smoked. [address] [address] PAIN MANAGEMENT CONSULTATION Name: LEONEL JENKINS Room #: REG [facility]#: [id number] Admission: 03/26/19 Attend Phys: Amber Taylor MD Discharge: Date of : 65 Report #: [id number] 13. Alcohol. The patient denies frequent use of alcoholic beverages. PHYSICAL EXAMINATION: GENERAL: The patient is a well-developed, well-nourished white female. Appears her stated age. She is alert and oriented x 3. Her affect is appropriate. Speech is fluent. HEENT: Normocephalic, atraumatic. Extraocular eye muscles intact. Sclerae nonicteric. Mucous membranes are moist. NECK: Without adenopathy or JVD. The patient has some discomfort in the right shoulder, but improved from the last visit. HEART: Regular rate. S1, S2. ABDOMEN: Nontender. Bowel sounds present. MUSCULOSKELETAL: The patient without significant scoliosis, kyphosis or lordosis. Upper extremity muscle strength judged to be 4+5-/5 for the left side and 5-/5 on the right. Lower extremity muscle strength judged to be 5-/5. She has pain along the L5 dermatomal distribution. IMPRESSION: 1. History of cervical radiculopathy and cervical pain, status post cervical epidural steroid injection with improvement. 2. History of lumbar radicular pain. 3. Right shoulder pain with soreness in the area of the biceps tendon. 4. Stress regarding her 's health. He has been found to have basal cell carcinoma as well as squamous cell carcinoma on his arm. 5. Depression. 6. Anxiety. RECOMMENDATIONS: We discussed treatment options with the patient. At this juncture, we will continue with her medications. She feels the medications have been helpful. Cervical epidural steroid injection was beneficial. After the last injection. Feels that her medications are helpful. She is aware of the need to stay on the lowest amount of opioids if possible. We may in the near future, consider decreasing her opioid level. She will continue to move her shoulder muscles and continue to work to increase her range of motion as well. A script for her medications has been rewritten. Again, we had a conversation as we have asked the patient regarding problems with opioid medications. They can cause addiction in certain patients. She is alert, does not show any signs of addiction. Taking her medication as prescribed. She will follow up in the near future. A script for all of her medications have been rewritten. We would like to thank you for letting us participate in her care. We hope she continues to improve. <ELECTRONICALLY SIGNED> By: Amber Taylor MD 04/20/19 1424 [id number] MD rony Yu
== END ==
LOC: PAIN 06:56
DX: M19.012 Primary osteoarthritis, left shoulder (principal); M19.011 Primary osteoarthritis, right shoulder; F32.9 Major depressive disorder, single episode, unspecified; F41.9 Anxiety disorder, unspecified

== ENCOUNTER → 2019-05-28 | Outpatient (CLI) | payer BC ==
[~2019-05-28] VITALS: Ht 170.2 cm; Wt 79.3 kg
[~2019-05-28] MED LIST changes: +MOBIC7.5 MG PO; +OXYCONTIN10 M1 PO; +SOMA350 MG PO
[2019-05-28 08:29] VITALS: BP 139/88
--- NOTE | 2019-05-28 08:56 | NUR ---
Pain Clinic Assessment: 1. History of Osteoarthritis: NONE History of Rheumatoid Arthritis: NONE 2. Height: 5 ft. 7 in. 170.2 cm. Weight: 174.8 lb. oz. 79.289 kg. Patient's BMI: 27.4 3. Vital Signs: BP: 139/88 Pulse: 65 Resp: 14 Temp: 02 Sat: 97 ECG Mon: 4. Pain Intensity: 8 5. Fall Risk: Dizziness: N Needs help standing or walking: N Fallen in the last 3 months: Y Fall risk comments: 6. Patient on Blood Thinner: None 7. History of Hypertension: N 8. Opioid Therapy greater than 6 weeks: Y Opiate Contract Signed: 07/16/17 9. Risk Assessment Tool Provided: MOD 10. Functional Assessment Tool: 11. Recreational Drug Use: Never Drug Type: Tobacco Use: Never Smoker Tobacco Type: Amount or Packs/day: How Many Years: Alcohol Use: No Frequency: Quant:
--- NOTE | 2019-05-31 08:25 | HPC ---
[facility] [place] [place] [address] [address] PAIN MANAGEMENT CONSULTATION Name: LEONEL JENKINS Room #: REG [facility]..#: [id number] Admission: 05/28/19 Attend Phys: Nicolasa Pillai Discharge: Date of : 65 Report #: [id number] THIS REPORT FOR: cc: SUE BOB MD Physician not on staff Nicolasa Pillai ~ THIS REPORT FOR: //name// CC: Nicolasa Pillai Physician staff SUE BOB DATE OF SERVICE: 05/28/2019 CHIEF COMPLAINT: Low back pain and bilateral hip pain. HISTORY OF PRESENT ILLNESS: This is a 54-year-old female who returns to the pain clinic today stating that she is having increased pain for the last month since Dr. Taylor had decreased her hydrocodone. She reports that she is out early of her hydrocodone because she was not able to decrease on some days due to her pain. Today, she is reporting pain score of 8/10 in her lower back, hips and right leg. She also has occasionally right shoulder pain. It is an aching, numbness, tingling, sharp feeling, especially when she is standing too long or working too hard. She continues to work every day at the [employer]. She has missed work several times due to increased pain these last 2 months. She is wondering if we may increase her breakthrough pain pills to 4 times a day again, though she is still wanting to decrease her total daily dose to less than 50 morphine milliequivalent to be able to come every 3 months for her medicines. She states coming every 2 months is a hardship for her. ALLERGIES: No known drug allergies. CURRENT LIST OF MEDICATIONS: Gabapentin 300 mg b.i.d., oxycodone 20 mg daily, Soma 350 mg b.i.d. p.r.n., hydrocodone 10/325 t.i.d., Ambien 5 mg 1-2 at bedtime and Prozac 20 mg daily. PQRS: 1. She has arthritic changes involving her hands and lower back. She is not being treated for rheumatoid arthritis. 2. Height is 5 feet 7 inches, weight is 174, BMI is 27. 3. Vital signs 139/88, pulse is 65, respirations 14, oxygen sat is 97. 4. Pain score is 8/10. 5. Denies dizziness, does not need help walking or standing, has fallen in the last 3 months. The patient is not on any blood thinners and does not take medicine for hypertension. 6. Opiate therapy is greater than 6 weeks; therefore, [place] [address] PAIN MANAGEMENT CONSULTATION Name: LEONEL JENKINS Room #: REG [facility].#: [id number] Admission: 05/28/19 Attend Phys: Nicolasa Pillai Discharge: Date of : 65 Report #: [id number] is on the chart. Risk assessment tool is moderate. Functional assessment is 23/70. 7. Recreational drug use, she denies. She is not a smoker and does not drink alcohol. According to the prescription monitoring system, the patient is filling appropriately for her medications. She is slightly early for her hydrocodone. According to the CDC guidelines, her morphine milliequivalent per day is 60 MME. PHYSICAL EXAMINATION: GENERAL: This is a well-developed, well-nourished white female of 54. She appears her stated age, placing her pain score at 8/10 today. HEENT: Normocephalic, atraumatic. Mucous membranes are moist. Extraocular eye muscles are intact. NECK: Without adenopathy or JVD. MUSCULOSKELETAL: She is without significant scoliosis, kyphosis or lordosis. Her upper extremity strength judged to be 4/5 for the left and 5/5 on the right. She has low back pain that radiates into her legs following the L5 dermatomal distribution. Her lower extremity strength judged to be 5/5. IMPRESSION: 1. History of cervical radiculopathy and cervical pain, status post cervical epidural steroid injection, beneficial. 2. History of lumbar radicular pain. 3. Depression. 4. Anxiety. 5. Complex medical management under terms of written opioid agreement. We reviewed the fact that opiate medications are being used to provide analgesia adequate to support activities of daily living, not attempting to achieve a specific pain score on the 0-10 Visual Analog Scale. The current opiate medications are providing sufficient analgesia to allow the patient to participate in activities of daily living. The patient is not exhibiting any aberrant behavior suggestive of drug diversion. The patient is not having any adverse reactions to medications. The patient is not suffering from daytime somnolence or mental acuity changes. The patient is managing opiate-induced constipation with appropriate cxbd-rrc-twsipig agents and dietary considerations. The patient was counseled on concern for caution with operating a motor vehicle while using opiate medications. PLAN: 1. We discussed treatment options in depth today. The patient is wanting to be at 50 morphine milliequivalent or below so she may come to her clinic visits every 3 months. I discussed this with Dr. Taylor. Since the patient is having increased pain, but wishing to decrease her medications, we will decrease her OxyContin long-acting from 20 mg to 10 mg for 3 months, taking one tablet a day [address] [address] PAIN MANAGEMENT CONSULTATION Name: LEONEL JENKINS Room #: REG [facility].#: [id number] Admission: 05/28/19 Attend Phys: Nicolasa NORRIS Pillai Discharge: Date of : 65 Report #: [id number] and increase her hydrocodone from 10/325 three tablets a day to four tablets a day. This will decrease her overall morphine milliequivalent from 60 to 55. We will allow her to come back in 3 months and at that time we will hopefully wean her off her OxyContin and keeping her on her hydrocodone. The patient is agreeable with this plan of care. She understands that she may have increased pain, but is wanting to decrease her overall medicine dosage. 2. In decreasing her opioid medications, we did discuss adding an anti-inflammatory medication, which she does not take, to see if this helps with her pain control. We discussed that we use many adjunct medications. She is already on gabapentin and as well as Soma for pain control. We will add meloxicam 7.5 mg once a day, but enable her to take two a day if she is needed. I will send this prescription electronically for 60 with one additional refill as well as her gabapentin 300 mg b.i.d., #60 with [address]. [address] Taylor will refill her Soma 350 mg b.i.d., #60 with 2 additional refills and Ambien 5 mg 1-2 tablets, #45 with 2 additional refills along with the OxyContin and hydrocodone. 4. The patient encouraged to call if she is having any difficulties with the weaning process. The patient is seen in collaboration with Dr. Elvis Taylor today. <ELECTRONICALLY SIGNED> By: Nicolasa Pillai 05/31/19 0825 [id number] [id number] iNcolasa Pillai /nt
== END ==
LOC: PAIN 06:48
DX: M54.16 Radiculopathy, lumbar region (principal); M54.12 Radiculopathy, cervical region; F32.9 Major depressive disorder, single episode, unspecified; F41.9 Anxiety disorder, unspecified; Z79.891 Long term (current) use of opiate analgesic

== ENCOUNTER → 2019-08-18 | Outpatient (CLI) | payer BC ==
[~2019-08-18] VITALS: Ht 170.2 cm; Wt 74.1 kg
[~2019-08-18] MED LIST changes: +MOBIC15 MG PO
[2019-08-18 09:52] VITALS: BP 141/93
--- NOTE | 2019-08-18 10:07 | NUR ---
Pain Clinic Assessment: 1. History of Osteoarthritis: NONE History of Rheumatoid Arthritis: NONE 2. Height: 5 ft. 7 in. 170.2 cm. Weight: 163.4 lb. oz. 74.118 kg. Patient's BMI: 25.6 3. Vital Signs: BP: 141/93 Pulse: 69 Resp: 14 Temp: 02 Sat: 100 ECG Mon: 4. Pain Intensity: 7 5. Fall Risk: Dizziness: N Needs help standing or walking: N Fallen in the last 3 months: Y Fall risk comments: 6. Patient on Blood Thinner: None 7. History of Hypertension: N 8. Opioid Therapy greater than 6 weeks: Y Opiate Contract Signed: 07/16/17 9. Risk Assessment Tool Provided: MOD 10. Functional Assessment Tool: 11. Recreational Drug Use: Never Drug Type: Tobacco Use: Never Smoker Tobacco Type: Amount or Packs/day: How Many Years: Alcohol Use: No Frequency: Quant:
--- NOTE | 2019-08-25 07:58 | HPC ---
[facility] [address] [address] PAIN MANAGEMENT CONSULTATION Name: LEONEL JENKINS Room #: REG TYSON Love#: [id number] Admission: 08/18/19 Attend Phys: Amber Taylor MD Discharge: Date of : 65 Report #: [id number] THIS REPORT FOR: cc: SUE BOB MD Physician not on staff Amber Taylor MD ~ CC: Amber Taylor Physician staff SUE BOB DATE OF SERVICE: 08/18/2019 CHIEF COMPLAINT: Right-sided low back pain and right hip pain. HISTORY: The patient is a 54-year-old female who has been followed in the pain clinic. As you may recall, she has pain and discomfort in the low back area. She has in the past undergone epidural steroid injections. She also has pain involving her shoulders and it also involves in her hands. She has been taking nonsteroidal anti-inflammatory medications. She has been off work for a while because of the COVID-19. Since she has been off work she has noticed worsening of pain. She has not been as mobile. Her right thumb is locking up. She has been experiencing some numbness and tingling in her lower extremities. She rates her pain as a 7/10. Pain is worse when she sits for too long. It is exacerbated if she stands for too long. She finds that her medications continue to be helpful. She continues to work for [employer]. She is concerned about her . He has skin cancer. He has been treated. Because of the COVID-19 he has been staying home. She is concerned that given his history of cancer COVID-19 may be more problematic. She has returned today for renewal of her medications. ALLERGIES: No known drug allergies. CURRENT MEDICATIONS: Ambien 5 mg at bedtime, OxyContin 20 mg b.i.d., hydrocodone 7.5 mg, gabapentin 300 mg b.i.d., Soma 350 mg b.i.d., Prozac 20 mg. PAIN CLINIC ASSESSMENT/PQRS: 1. The patient does have some osteoarthritic changes involving her hands as well as in her shoulders. She is not being treated for rheumatoid arthritis. 2. Height 5 feet 7 inches, weight 163 pounds, BMI is 26. 3. Vital signs: Blood pressure 141/93, pulse 69, respiratory rate 14, room air saturation is 100%. 4. Pain intensity 7/10. 5. Fall history: The patient has not fallen in the last 3 months. 6. Blood thinner. The patient is not on a blood thinning medication. 7. History of hypertension. The patient is not being treated for hypertension. 8. Opioids greater than 6 weeks. The patient receives her medication from the [address] [address] PAIN MANAGEMENT CONSULTATION Name: LEONEL JENKINS Room #: REG CLI [facility]#: [id number] Admission: 08/18/19 Attend Phys: Amber Taylor MD Discharge: Date of : 65 Report #: [id number] pain clinic. 9. Risk assessment tool, moderate for opioid use. 10. Functional assessment tool . 11. Recreational drug use. The patient denies. 12. Tobacco: The patient has never smoked. 13. Alcohol. The patient denies use of alcoholic beverages. PHYSICAL EXAMINATION: GENERAL: The patient is a well-developed, well-nourished white female. Appears her stated age. She is alert and oriented x 3. Her affect is appropriate. Speech is fluent. HEENT: Normocephalic, atraumatic. Extraocular eye muscles intact. Sclerae nonicteric. Mucous membranes are moist. The patient is wearing a mask. NECK: Without adenopathy or JVD. HEART: Regular rate. S1, S2. ABDOMEN: Nontender. MUSCULOSKELETAL: The patient without significant scoliosis, kyphosis or lordosis. Upper extremity muscle strength judged to be 4+/5 for the major muscle groups, 5-/5 on the right. Lower extremity muscle strength judged to be 5-/5. The patient has some pain and discomfort along the L5 dermatomal distribution. IMPRESSION: 1. History of cervical radiculopathy and cervical pain, status post cervical epidural steroid injections in the past. 2. History of lumbar radiculopathy. 3. History of right shoulder pain. 4. Stress because of the patient's health condition with basal cell carcinoma as well as squamous cell carcinoma on arm. 5. Stress associated with COVID-19. 6. Depression. 7. Anxiety. RECOMMENDATIONS: We discussed treatment options with the patient. Risks and benefits of opioid medications again were discussed. Possible complications of their use has been again reviewed. The patient is aware that opioid medications can become less effective over time. She has taken her medications as prescribed. She is not having any side effects. She finds that her medications enable her to be more active with less pain and discomfort, and enable her to perform her job with less discomfort. She has been off work for a short period of time. She is to continue with her medications. She will call us if she has any concerns. The patient and her will continue to socially isolate themself given the COVID-19 pandemic, which is ongoing. She is concerned about [address] [address] PAIN MANAGEMENT CONSULTATION Name: LEONEL JENKINS Room #: REG [facility].#: [id number] Admission: 08/18/19 Attend Phys: Amber Taylor MD Discharge: Date of : 65 Report #: [id number] her 's condition given that he has decreased immune response because of his cancer. <ELECTRONICALLY SIGNED> By: Amber Taylor MD 08/25/19 [id number] Amber Taylor MD /PMT
== END ==
LOC: PAIN 08-11 09:51
DX: M54.5 Low back pain (principal); M25.551 Pain in right hip; F41.8 Other specified anxiety disorders; Z87.39 Personal history of other diseases of the musculoskeletal system and connective tissue; Z98.890 Other specified postprocedural states; Z88.8 Allergy status to other drugs, medicaments and biological substances; Z79.899 Other long term (current) drug therapy

== ENCOUNTER → 2019-11-19 | Outpatient (CLI) | payer BC ==
[~2019-11-19] VITALS: Ht 170.2 cm; Wt 78.3 kg
--- NOTE | ~2019-11-19 | HPC ---
[facility] [address] [place] [address] PAIN MANAGEMENT CONSULTATION Name: LEONEL JENKINS Room #: REG TYSON Love#: [id number] Admission: 11/19/19 Attend Phys: Amber Taylor MD Discharge: Date of : 65 Report #: [id number] THIS REPORT FOR: cc: SUE BOB MD Physician not on staff Amber Taylor MD ~ CC: Amber Taylor Physician staff SUE BOB DATE OF SERVICE: 11/19/2019 CHIEF COMPLAINT: Neck pain, back and knee pain. HISTORY: The patient is a 54-year-old female who has been followed in the pain clinic because of chronic pain. She has pain in her back and has noticed some pain involving her shoulders and hands. She has continued to work. She works at [employer]. Her job is somewhat taxing. This does exacerbate her pain and discomfort. She feels that her medications are helpful. She rates her pain today as an 8/10. She is concerned about COVID-19. Her has been treated for skin cancer. She is concerned that some of her coworkers do not wear mask and put her at higher risk for infection. She has returned today for renewal of her medications. ALLERGIES: No known drug allergies. CURRENT MEDICATIONS: Ambien 5 mg at bedtime, OxyContin 20 mg b.i.d., hydrocodone 7.5 mg, gabapentin 300 mg b.i.d., Soma 350 mg b.i.d., Prozac 20 mg. PAIN CLINIC ASSESSMENT AND PQRS: 1. The patient does have some osteoarthritic changes involving her hands as well as her shoulders. She is not being treated for rheumatoid arthritis. 2. Height 5 feet 7 inches, weight 172 pounds, BMI is 27. 3. Vital Signs: Blood pressure 167/80, pulse 58, respiratory rate 16, room air saturation 99%. 4. Pain intensity, 8/10. 5. Fall history. The patient has not fallen in the last 3 months. 6. Blood thinner. The patient is not on a blood thinning medication. 7. Hypertension. The patient is not being treated for hypertension. 8. Opioids greater than 6 weeks. The patient receives medication from the pain clinic. 9. Risk assessment tool, moderate for opioid use. 10. Functional assessment tool, . 11. Recreational drug use. The patient denies. 12. Alcohol. The patient denies use of alcoholic beverage. 13. Tobacco. The patient has never smoked. [facility] [address] [place] [address] PAIN MANAGEMENT CONSULTATION Name: LEONEL JENKINS Room #: REG CLI [facility]#: [id number] Admission: 11/19/19 Attend Phys: Amber Taylor MD Discharge: Date of : 65 Report #: [id number] PHYSICAL EXAMINATION: GENERAL: The patient is a well-developed, well-nourished, white female. Appears her stated age. She is alert and oriented x 3. Her affect is appropriate. Speech is fluent. She has just gotten off from work this morning. HEENT: Normocephalic, atraumatic. Extraocular eye muscles intact. Sclerae nonicteric. Mucous membranes are moist. NECK: Without adenopathy or JVD. HEART: Regular rate. ABDOMEN: Nontender. MUSCULOSKELETAL: The patient without significant scoliosis, kyphosis or lordosis. Upper extremity muscle strength judged to be 4+/5 for the major muscle groups in the upper extremity and 5-/5 on the lower extremity. The patient's pain is generally in the L5 dermatomal distribution. IMPRESSION: 1. History of cervical radiculopathy and cervical pain, status post cervical epidural injections in the past. 2. History of lumbar radiculopathy. 3. History of right shoulder pain. 4. Stress because of the patient's 's health condition involving squamous cell carcinoma. 5. Stress associated with COVID-19. 6. Depression. 7. Anxiety. RECOMMENDATIONS: We discussed treatment options with the patient. At this juncture, we will continue with her medications. She feels that the medications are helpful. They enable her to stay gainfully employed. She is not having any problems with mentation. She is able to perform her job at work without any mental lapses. A script for her medications has been rewritten. The patient will continue with the medication as prescribed. A script for her medications have been rewritten. She will continue with Soma 350 mg 1 tablet p.o. b.i.d., a script for gabapentin 300 mg 1 p.o. b.i.d. has been provided. The patient will also continue with hydrocodone 10/325 1 p.o. q.i.d. The patient will continue with meloxicam 15 mg 1 p.o. daily. She will continue to monitor her GI tract. Should she note some GI irritation, she will stop taking this medication. The patient will continue with OxyContin 10 mg 1 p.o. b.i.d. The patient has been given 3 months of medications. We would like to thank you for letting us participate in her care. We hope she [address] [address] PAIN MANAGEMENT CONSULTATION Name: LEONEL JENKINS Room #: REG CLAna Love#: [id number] Admission: 11/19/19 Attend Phys: Amber Taylor MD Discharge: Date of : 65 Report #: [id number] continues to improve. The patient continues to keep her medications in a guarded area. By: [id number] Amber Taylor MD /SOTERO
[2019-11-19 09:19] VITALS: BP 167/80
--- NOTE | 2019-11-19 09:26 | NUR ---
Pain Clinic Assessment: 1. History of Osteoarthritis: BACK BOTH HANDS NECK KNEES History of Rheumatoid Arthritis: Not Applicable 2. Height: 5 ft. 7 in. 170.2 cm. Weight: 172.6 lb. oz. 78.291 kg. Patient's BMI: 27.0 3. Vital Signs: BP: 167/80 Pulse: 58 Resp: 16 Temp: 02 Sat: 99 ECG Mon: 4. Pain Intensity: 8 5. Fall Risk: Dizziness: N Needs help standing or walking: N Fallen in the last 3 months: N Fall risk comments: 6. Patient on Blood Thinner: None 7. History of Hypertension: N 8. Opioid Therapy greater than 6 weeks: Y Opiate Contract Signed: 07/16/17 9. Risk Assessment Tool Provided: MOD 10. Functional Assessment Tool: 11. Recreational Drug Use: Never Drug Type: Tobacco Use: Never Smoker Tobacco Type: Amount or Packs/day: How Many Years: Alcohol Use: No Frequency: Quant:
== END ==
LOC: PAIN 11-18 11:06
PROVIDERS: ATTEND Anesthesiology Pain Medicine
DX: M54.2 Cervicalgia (principal); M54.9 Dorsalgia, unspecified; M25.569 Pain in unspecified knee; F43.9 Reaction to severe stress, unspecified; F41.8 Other specified anxiety disorders; Z87.39 Personal history of other diseases of the musculoskeletal system and connective tissue; Z96.611 Presence of right artificial shoulder joint; Z79.899 Other long term (current) drug therapy

== ENCOUNTER → 2020-02-11 | Outpatient (CLI) | payer BC ==
[~2020-02-11] VITALS: Ht 170.2 cm; Wt 76.7 kg
--- NOTE | ~2020-02-11 | HPC ---
[facility] [address] [place] [address] PAIN MANAGEMENT CONSULTATION Name: LEONEL JENKINS Room #: REG TYSON Love#: [id number] Admission: 02/11/20 Attend Phys: Amber Taylor MD Discharge: Date of : 65 Report #: [id number] THIS REPORT FOR: cc: SUE BOB MD Physician not on staff Amber Taylor MD ~ CC: Amber Taylor Physician staff SUE BOB DATE OF SERVICE: 03/13/2020 CHIEF COMPLAINT: Pain in the low back and down into both legs and involving the ankle. HISTORY: The patient is a 55-year-old female who has been followed in the pain clinic because of chronic pain. She has returned today because of the need to renew her medications. She has pain in the lower portion of her back that radiates down into both legs. It involves her ankle. She has been having problems since 1986. She has chronic pain. Describes as sharp, stabbing, dull and aching. Rates as a 6/10 today. Pain is problematic if she sits for too longer period of time. Prolonged standing is problematic as well. She continues to work at [employer]. Certain activities can exacerbate her discomfort. She is concerned about the COVID-19 problem. Her has been treated for cancer. She is considering going to see family members over the . She has had no complications with her medications. She keeps her medications in a guarded area. She feels that the medication enable her to stay gainfully employed. She is able to think clearly. She is able to execute her job without problems. ALLERGIES: No known drug allergies. CURRENT MEDICATIONS: Ambien 5 mg at bedtime, oxycodone 20 mg b.i.d., hydrocodone 7.5 mg, gabapentin 300 mg b.i.d., Soma 350 mg b.i.d., Prozac 20 mg. PAIN CLINIC ASSESSMENT AND PQRS: 1. The patient does have some osteoarthritic changes involving her hands as well as her shoulders. She is not being treated for rheumatoid arthritis. 2. Height 5 feet 7 inches, weight 169 pounds, BMI 26.5. 3. Blood pressure 133/77, pulse 66, respiratory rate 16, room air saturation 97%. 4. Pain intensity 09/28. 5. Fall history: The patient has not fallen since we saw her last. 6. Risk assessment tool, moderate for opioid use. 7. Functional assessment tool . 8. Recreational drug use: [place] [address] PAIN MANAGEMENT CONSULTATION Name: LEONEL [facility]ENKINS [id number] Admission: 02/11/20 Attend Phys: Amber Taylor MD Discharge: Date of : 65 Report #: [id number] 9. Alcohol: The patient denies use of alcoholic beverages. 10. Tobacco: The patient has never smoked. PHYSICAL EXAMINATION: GENERAL: The patient is a well-developed, well-nourished white female. Appears her stated age. She is alert and oriented x 3. Her affect is appropriate. Speech is fluent. HEENT: Normocephalic, atraumatic. Extraocular eye muscles intact. The patient is wearing a facial covering. NECK: Without adenopathy or JVD. HEART: Regular rate. ABDOMEN: Nontender. MUSCULOSKELETAL: The patient without significant scoliosis, kyphosis or lordosis. The patient's upper extremity muscle strength judged to be 4+/5 for the major muscle groups in the upper extremity and 5-/5 for the major muscle groups in the lower extremity. The patient has pain, which is generally in the L5 dermatomal distribution involves both legs today. IMPRESSION: 1. History of cervical radiculopathy and cervical pain, status post cervical epidural steroid injection in the past. 2. History of lumbar radiculopathy. 3. History of right shoulder pain. 4. Increased stress associated with COVID-19 pandemic. 5. Depression. 6. Anxiety. RECOMMENDATIONS: We discussed treatment options with the patient. At this juncture, we will continue with her medications. She feels medications continue to be helpful. She is able to maintain her job performance to acceptable level with use of her medications. She is able to think clearly. She would like to have the medications renewed. The patient is considering seeing family members over the . We had a discussion regarding the possible side effects/downside of seeing other family members. The CDC has recommended that we try to refrain from interstate travel and the patient will consider this. A script for her medications of Soma 350 mg 1 p.o. b.i.d. has been provided. The patient will also continue gabapentin 300 mg b.i.d. The patient has been given a script for hydrocodone 10/325 one p.o. q.i.d. The patient will also continue to monitor her GI tract. She will use meloxicam. She will stop taking this medication should she noted a worsening of her GI complaints. The patient will also continue with OxyContin 10 mg 1 p.o. b.i.d. The patient will call if she has any concerns. [address] [address] PAIN MANAGEMENT CONSULTATION Name: LEONEL JENKINS Room #: REG [facility].#: [id number] Admission: 02/11/20 Attend Phys: Amber Taylor MD Discharge: Date of : 65 Report #: [id number] We would like to thank you for letting us participate in her care. We hope she continues to improve. By: [id number] Amber Taylor MD /nt
[2020-02-11 09:36] VITALS: BP 133/77
--- NOTE | 2020-02-11 09:45 | NUR ---
Pain Clinic Assessment: 1. History of Osteoarthritis: BACK BOTH HANDS NECK KNEES History of Rheumatoid Arthritis: Not Applicable 2. Height: 5 ft. 7 in. 170.2 cm. Weight: 169.0 lb. oz. 76.658 kg. Patient's BMI: 26.5 3. Vital Signs: BP: 133/77 Pulse: 66 Resp: 16 Temp: 02 Sat: 98 ECG Mon: 4. Pain Intensity: 6 5. Fall Risk: Dizziness: N Needs help standing or walking: N Fallen in the last 3 months: N Fall risk comments: 6. Patient on Blood Thinner: None 7. History of Hypertension: N 8. Opioid Therapy greater than 6 weeks: Y Opiate Contract Signed: 07/16/17 9. Risk Assessment Tool Provided: low-1 10. Functional Assessment Tool: 11. Recreational Drug Use: Never Drug Type: Tobacco Use: Never Smoker Tobacco Type: Amount or Packs/day: How Many Years: Alcohol Use: No Frequency: Quant:
== END ==
LOC: PAIN 08:12
PROVIDERS: ATTEND Anesthesiology Pain Medicine
DX: M54.12 Radiculopathy, cervical region (principal); M54.16 Radiculopathy, lumbar region; M25.511 Pain in right shoulder; F32.9 Major depressive disorder, single episode, unspecified; F41.9 Anxiety disorder, unspecified; Z79.899 Other long term (current) drug therapy

== ENCOUNTER → 2020-05-12 | Outpatient (CLI) | payer BC ==
[~2020-05-12] VITALS: Ht 170.2 cm; Wt 78.8 kg
[~2020-05-12] MED LIST changes: +MELOXICAM15 MG PO; +NEURONTIN 300M300 M2 PO
[2020-05-12 07:46] VITALS: BP 133/87
--- NOTE | 2020-05-12 07:52 | NUR ---
Pain Clinic Assessment: 1. History of Osteoarthritis: BACK BOTH HANDS NECK KNEES History of Rheumatoid Arthritis: Not Applicable 2. Height: 5 ft. 7 in. 170.2 cm. Weight: 173.8 lb. oz. 78.835 kg. Patient's BMI: 27.2 3. Vital Signs: BP: 133/87 Pulse: 55 Resp: 18 Temp: 02 Sat: 99 ECG Mon: 4. Pain Intensity: 6.5 5. Fall Risk: Dizziness: N Needs help standing or walking: N Fallen in the last 3 months: N Fall risk comments: 6. Patient on Blood Thinner: None 7. History of Hypertension: N 8. Opioid Therapy greater than 6 weeks: Y Opiate Contract Signed: 07/16/17 9. Risk Assessment Tool Provided: low-1 10. Functional Assessment Tool: 11. Recreational Drug Use: Never Drug Type: Tobacco Use: Never Smoker Tobacco Type: Amount or Packs/day: How Many Years: Alcohol Use: No Frequency: Quant:
== END ==
LOC: PAIN 06:50
PROVIDERS: ATTEND Clinical Nurse Specialist Adult Health
DX: M54.16 Radiculopathy, lumbar region (principal); M54.12 Radiculopathy, cervical region; F32.9 Major depressive disorder, single episode, unspecified; F41.9 Anxiety disorder, unspecified; Z79.891 Long term (current) use of opiate analgesic

== ENCOUNTER → 2020-06-14 | Outpatient (CLI) | payer BC ==
[~2020-06-14] VITALS: Ht 170.2 cm; Wt 79.5 kg
[~2020-06-14] MED LIST changes: +LIDODERM1 EACH TOP; +PROZAC20 M1 PO
[2020-06-14 08:18] VITALS: BP 124/79
--- NOTE | 2020-06-14 08:36 | NUR ---
Pain Clinic Assessment: 1. History of Osteoarthritis: BACK BOTH HANDS NECK KNEES History of Rheumatoid Arthritis: Not Applicable 2. Height: 5 ft. 7 in. 170.2 cm. Weight: 175.2 lb. oz. 79.470 kg. Patient's BMI: 27.4 3. Vital Signs: BP: 124/79 Pulse: 64 Resp: 14 Temp: 02 Sat: 98 ECG Mon: 4. Pain Intensity: 7-8 5. Fall Risk: Dizziness: N Needs help standing or walking: N Fallen in the last 3 months: N Fall risk comments: 6. Patient on Blood Thinner: None 7. History of Hypertension: N 8. Opioid Therapy greater than 6 weeks: Y Opiate Contract Signed: 07/16/17 9. Risk Assessment Tool Provided: low-1 10. Functional Assessment Tool: 11. Recreational Drug Use: Never Drug Type: Tobacco Use: Never Smoker Tobacco Type: Amount or Packs/day: How Many Years: Alcohol Use: No Frequency: Quant:
== END | disposition home or self-care (01) ==
LOC: PAIN 06:47
PROVIDERS: ATTEND Anesthesiology Pain Medicine
DX: M54.12 Radiculopathy, cervical region (principal); M54.16 Radiculopathy, lumbar region; M54.2 Cervicalgia; G89.29 Other chronic pain; M19.90 Unspecified osteoarthritis, unspecified site; F32.9 Major depressive disorder, single episode, unspecified; F41.9 Anxiety disorder, unspecified; Z98.890 Other specified postprocedural states; Z79.899 Other long term (current) drug therapy; Z79.891 Long term (current) use of opiate analgesic; Z90.710 Acquired absence of both cervix and uterus

== ENCOUNTER → 2020-07-28 | Outpatient (CLI) | payer BC ==
[~2020-07-28] VITALS: Ht 172.7 cm; Wt 80.1 kg
[~2020-07-28] MED LIST changes: +XTAMPZA ER9 MG PO
[2020-07-28 08:31] VITALS: BP 149/89
--- NOTE | 2020-07-28 08:39 | NUR ---
Pain Clinic Assessment: 1. History of Osteoarthritis: BACK BOTH HANDS NECK KNEES History of Rheumatoid Arthritis: Not Applicable 2. Height: 5 ft. 8 in. 172.7 cm. Weight: 176.6 lb. oz. 80.105 kg. Patient's BMI: 26.9 3. Vital Signs: BP: 149/89 Pulse: 54 Resp: 18 Temp: 02 Sat: 99 ECG Mon: 4. Pain Intensity: 7 5. Fall Risk: Dizziness: N Needs help standing or walking: N Fallen in the last 3 months: N Fall risk comments: 6. Patient on Blood Thinner: None 7. History of Hypertension: N 8. Opioid Therapy greater than 6 weeks: Y Opiate Contract Signed: 07/16/17 9. Risk Assessment Tool Provided: low-1 10. Functional Assessment Tool: 11. Recreational Drug Use: Never Drug Type: Tobacco Use: Never Smoker Tobacco Type: Amount or Packs/day: How Many Years: Alcohol Use: No Frequency: Quant:
--- NOTE | 2020-08-01 08:15 | HPC ---
[facility] [place] [address] PAIN MANAGEMENT CONSULTATION Name: LEONEL JENKINS Room #: REG [facility].#: [id number] Admission: 07/28/20 Attend Phys: Nicolasa Pillai Discharge: Date of : 65 Report #: [id number] THIS REPORT FOR: cc: SUE BOB MD Physician not on staff Nicolasa Pillai ~ DATE OF SERVICE: 07/28/2020 CHIEF COMPLAINT: Low back pain and radiculopathy. HISTORY OF PRESENT ILLNESS: This is a 55-year-old female who returns to the pain clinic today to discuss her opioid medications. At her last visit, Dr. Elvis Taylor did rotate her from OxyContin to Xtampza due to insurance issues. The patient states that medication has caused her to be very nauseated and have dizzy sensations similar to when she had a Meniere's disease flare. The patient reports she only took this medication for less than a week and has stopped that medication. It has been our plan to decrease the patient in her opioid use overall and we have slowly been attempting to do this over the last year. The patient feels that today would be a good time to just continue her hydrocodone and no longer be on a long-acting medication. Today, the patient is reporting a pain score of 7/10, most significantly in her low back and legs. It does radiate from her buttocks into her thighs towards the bottom of her feet. She describes her pain as a sharp, stabbing, aching sensation that is worse when she is too active or sits too long. Overall, she believes that the medications are beneficial as well as reclining. She denies any somnolence or constipation issues from her opioid medications. ALLERGIES: No known drug allergies. CURRENT LIST OF MEDICATIONS: Ambien, Xtampza, meloxicam, hydrocodone 10/325, gabapentin, Soma, Lidoderm, Prozac. PQRS: 1. She has osteoarthritis issues in her back, hands, neck and knees. Denies any rheumatoid arthritis. 2. Height is 5 feet 8 inches, weight is 176, BMI is 26. 3. Vital signs: Blood pressure 149/89, pulse is 54, respirations 18, oxygen sat is 99%. 4. Pain score is 7/10. 5. Denies dizziness, does not need help walking or standing, has not fallen in the last 3 months. 6. The patient is not on any blood thinners or medication for hypertension. 7. Opioid therapy is greater than 6 weeks; therefore, an opioid signed contract is on the chart. Risk assessment is low. Functional assessment is 39/70. 8. Recreational drug use, she denies. She is not a smoker and [place] [address] PAIN MANAGEMENT CONSULTATION Name: LEONEL JENKINS Room #: REG CL Kate#: [id number] Admission: 07/28/20 Attend Phys: Nicolasa Pillai Discharge: Date of : 65 Report #: [id number] According to the prescription monitoring system, the patient is early to fill her medications today, but wanted to discuss her long acting medications and she is going out of town to care for a sick relative. Her morphine milliequivalent with only hydrocodone would be 40 MME per day. We will collect a random drug screen on this patient today. PHYSICAL EXAMINATION: GENERAL: This is alert and orientated 55-year-old female who appears her stated age, rating her pain score today at 7/10. She is a good historian. HEENT: Normocephalic, atraumatic. Extraocular eye muscles are intact. Mucous membranes are moist. She is wearing a mask. NECK: Without adenopathy or JVD. MUSCULOSKELETAL: The patient is without significant scoliosis, kyphosis or lordosis. She has tenderness in her lumbar spine that radiates down both legs bilaterally in the outer aspect of her thighs to her feet following the L5-S1 dermatomal distribution. IMPRESSION: 1. Cervical radiculopathy and cervical pain. 2. Lumbar radiculopathy. 3. Depression and anxiety. 4. Complex medical management under scheduled opioid medications. PLAN: 1. We discussed treatment options with the patient today. The patient reports the Xtampza was not beneficial in decreasing her pain, she experienced significant side effects of nausea and dizziness and would like at this time to trial being on only short-acting medications. She has been without her long acting medicines for 3 weeks. She did bring her bottle with her today, which we will destroy this medication. 2. The patient reports 25% relief from the lumbar epidural steroid injection, it may be slightly higher than that. The patient is having a hard time remembering how beneficial it was since she changed medications at that same time. 3. The patient is going out of town to care for a sister with cancer. She is requesting an early refill. We did call her pharmacy and okay early release of her hydrocodone today and her Soma. The patient informed that she may need to pay out of pocket for these medications if insurance will not cover it. We reminded the patient that she will not be able to fill her next hydrocodone until 09/05 if she is out of town. She will need to make arrangements for her to ship about to her by [facility]. 4. Dr. Taylor will send her hydrocodone , #120 for September release and patient then will need to follow up with us in early October. Time spent with the patient in consultation, reviewing recent studies, clinical [facility] [address] [place] [address] PAIN MANAGEMENT CONSULTATION Name: LEONEL JENKINS Room #: REG [facility]#: [id number] Admission: 07/28/20 Attend Phys: Nicolasa Pillai Discharge: Date of : 65 Report #: [id number] notes physical examination and correlation of findings of medical documentation to determine treatment options 20 minutes. Time spent in preparation for appointment reviewing prescription monitoring system reviewing previous records proposed treatment options 5 minutes. Time spent preparing and sending electronic prescriptions with collaborating physician and calling the pharmacy as well as documentation of visit and plan of care 8 minutes. Total time spent 33 minutes. <ELECTRONICALLY SIGNED> By: Nicolasa Pillai 08/01/20 0815 [id number] Nicolasa Pillai /nt
== END ==
LOC: PAIN 06:53
PROVIDERS: ATTEND Clinical Nurse Specialist Adult Health
DX: M54.12 Radiculopathy, cervical region (principal); M54.16 Radiculopathy, lumbar region; F32.9 Major depressive disorder, single episode, unspecified; F41.9 Anxiety disorder, unspecified; Z79.899 Other long term (current) drug therapy; Z79.891 Long term (current) use of opiate analgesic

== ENCOUNTER → 2020-10-18 | Outpatient (CLI) | payer BC ==
[~2020-10-18] VITALS: Ht 172.7 cm; Wt 80.4 kg
[2020-10-18 09:36] VITALS: BP 137/96
--- NOTE | 2020-10-18 09:54 | NUR ---
Pain Clinic Assessment: 1. History of Osteoarthritis: BACK BOTH HANDS NECK KNEES History of Rheumatoid Arthritis: Not Applicable 2. Height: 5 ft. 8 in. 172.7 cm. Weight: 177.2 lb. oz. 80.377 kg. Patient's BMI: 26.9 3. Vital Signs: BP: 137/96 Pulse: 60 Resp: 14 Temp: 02 Sat: 98 ECG Mon: 4. Pain Intensity: 7 5. Fall Risk: Dizziness: N Needs help standing or walking: N Fallen in the last 3 months: Y Fall risk comments: 6. Patient on Blood Thinner: None 7. History of Hypertension: N 8. Opioid Therapy greater than 6 weeks: Y Opiate Contract Signed: 07/16/17 9. Risk Assessment Tool Provided: low-1 10. Functional Assessment Tool: 11. Recreational Drug Use: Never Drug Type: Tobacco Use: Never Smoker Tobacco Type: Amount or Packs/day: How Many Years: Alcohol Use: No Frequency: Quant:
== END ==
LOC: PAIN 06:59
PROVIDERS: ATTEND Anesthesiology Pain Medicine
DX: M54.12 Radiculopathy, cervical region (principal); M54.16 Radiculopathy, lumbar region; F32.9 Major depressive disorder, single episode, unspecified; F41.9 Anxiety disorder, unspecified; Z79.891 Long term (current) use of opiate analgesic; Z79.899 Other long term (current) drug therapy

== ENCOUNTER → 2021-01-05 | Outpatient (CLI) | payer BC ==
[~2021-01-05] VITALS: Ht 172.7 cm; Wt 79.7 kg
[2021-01-05 08:46] VITALS: BP 155/97
--- NOTE | 2021-01-05 08:59 | NUR ---
Pain Clinic Assessment: 1. History of Osteoarthritis: BACK BOTH HANDS NECK KNEES History of Rheumatoid Arthritis: Not Applicable 2. Height: 5 ft. 8 in. 172.7 cm. Weight: 175.6 lb. oz. 79.652 kg. Patient's BMI: 26.7 3. Vital Signs: BP: 155/97 Pulse: 60 Resp: 16 Temp: 02 Sat: 100 ECG Mon: 4. Pain Intensity: 6.5 5. Fall Risk: Dizziness: N Needs help standing or walking: N Fallen in the last 3 months: N Fall risk comments: 6. Patient on Blood Thinner: None 7. History of Hypertension: N 8. Opioid Therapy greater than 6 weeks: Y Opiate Contract Signed: 07/16/17 9. Risk Assessment Tool Provided: low-1 10. Functional Assessment Tool: 11. Recreational Drug Use: Never Drug Type: Tobacco Use: Never Smoker Tobacco Type: Amount or Packs/day: How Many Years: Alcohol Use: Yes Frequency: Special Occasions Quant: 1
== END ==
LOC: PAIN 07:00
PROVIDERS: ATTEND Anesthesiology Pain Medicine
DX: M54.12 Radiculopathy, cervical region (principal); M54.16 Radiculopathy, lumbar region; M79.671 Pain in right foot; M79.672 Pain in left foot; F41.8 Other specified anxiety disorders; Z79.899 Other long term (current) drug therapy

== ENCOUNTER → 2021-01-05 | Outpatient (CLI) | payer BC | LOC: RAD 10:31 | DX: Z12.31 Encounter for screening mammogram for malignant neoplasm of breast (principal); N64.89 Other specified disorders of breast; N60.82 Other benign mammary dysplasias of left breast; N60.81 Other benign mammary dysplasias of right breast ==

== ENCOUNTER → 2021-04-04 | Outpatient (CLI) | payer BC ==
[~2021-04-04] VITALS: Ht 172.7 cm; Wt 78.5 kg
[2021-04-04 08:28] VITALS: BP 145/88
--- NOTE | 2021-04-04 08:30 | NUR ---
Pain Clinic Assessment: 1. History of Osteoarthritis: BACK BOTH HANDS NECK KNEES History of Rheumatoid Arthritis: Not Applicable 2. Height: 5 ft. 8 in. 172.7 cm. Weight: 173.0 lb. oz. 78.472 kg. Patient's BMI: 26.3 3. Vital Signs: BP: 145/88 Pulse: 73 Resp: 16 Temp: 02 Sat: 98 ECG Mon: 4. Pain Intensity: 7 5. Fall Risk: Dizziness: N Needs help standing or walking: N Fallen in the last 3 months: N Fall risk comments: 6. Patient on Blood Thinner: None 7. History of Hypertension: N 8. Opioid Therapy greater than 6 weeks: Y Opiate Contract Signed: 07/16/17 9. Risk Assessment Tool Provided: low-1 10. Functional Assessment Tool: 11. Recreational Drug Use: Never Drug Type: Tobacco Use: Never Smoker Tobacco Type: Amount or Packs/day: How Many Years: Alcohol Use: Yes Frequency: Quant:
== END ==
LOC: PAIN 03-02 14:59
PROVIDERS: ATTEND Anesthesiology Pain Medicine
DX: M54.12 Radiculopathy, cervical region (principal); M54.16 Radiculopathy, lumbar region; F41.8 Other specified anxiety disorders; Z79.899 Other long term (current) drug therapy